=== PATIENT | female | born 1985 | race African-American/Black ===

== ENCOUNTER → 2016-09-15 | Outpatient (CLI) | payer BC | END | disposition home or self-care (01) | LOC: LABWHC1 16:05 | PROVIDERS: ATTEND Internal Medicine Endocrinology, Diabetes & Metabolism | DX: E03.8 Other specified hypothyroidism (principal) | CPT/HCPCS: 36415; 84443 ==

== ENCOUNTER → 2016-11-18 | Outpatient (CLI) | payer BC ==
[2016-11-18 13:27] VITALS: BP 141/63; PULSE 119; TEMP 98.4; BMI 72.1
--- NOTE | 2016-11-18 13:57 | P.HPBAR ---
Bariatric H&P - History & Physicial H&P Date: 11/18/16 History & Physicial: Visit/CC: initial consult Patient initial contact: Initial weight: Initial weight in pounds: Height: 5 ft 3 in Initial BMI: Last weight: Current weight: 184.567 kg Current weight in pounds: 406.90 Current BMI: 72.1 [place] body weight (based on NIH guidelines): 52.163 kg Excess body weight loss: The patient is a 31 year-old F who presents for Bariatric Assessment. She is interested in bariatric surgery. She went to a seminar in early October. Her sister is having a sleeve gastrectomy. She is try to variety of different diets without success. She is most interested currently in sleeve gastrectomy. The patient suffers from hypothyroidism asthma and low iron. 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 Denies dysphagia or DVT in the past. No prior endoscopy. She does have support of her power saw operator for the proposed surgery. Patient's mother was present today for her evaluation. Review of Systems The patient denies any acute changes in his vision or hearing, no dysphagia or odynophagia, no chest pain or shortness of breath, no dysuria or hematuria, no headache, no runny nose, no rectal bleeding or melena, no unexplained weight loss Past Medical History Past Medical History: Thyroid Disorder History of Any Multi-Drug Resistant Organisms: None Reported Past Surgical History: No Surgical Hx Reported Past Anesthesia/Blood Transfusion Reactions: No Reported Reaction Past Psychological History: No Psychological Hx Reported Smoking Status: Never smoker Past Alcohol Use History: None Reported Past Drug Use History: None Reported Surgical - Exam Vital Signs Temp Pulse BP 98.4 F 119 H 141/63 11/18/16 13:17 11/18/16 13:17 11/18/16 13:17 Physical exam: General: Well-developed, well-nourished HEENT: Normocephalic, sclerae nonicteric Abdomen: Nontender, nondistended Extremities: No edema Neuro: Alert and oriented Bariatric Assessment & Plan (1) Morbid obesity Narrative/Plan: The patient I discussed the surgical options in great detail. She remains most interested in sleeve gastrectomy. I encouraged her to potentially attend a additional seminar for informational purposes. We will tentatively move forward with the plans for sleeve gastrectomy. Upper endoscopy will be performed preoperatively. Appointment with psychiatry also being arranged. Await medical support letter is. Patient will see me in the office following her upper endoscopy. Status: Acute Bariatric Checklist Checklist: Plan: Checklist: EGD: 1. Hiatal hernia: 2. H. Pylori: HgbA1c: Vitamin D: Smoking: Never smoker Primary care physician referral: dr nino Psychiatry clearance: Cardiology clearance: Sleep study: Diet journal: VTE risk score: VTE risk level: Rehab needs at discharge:
== END | disposition home or self-care (01) ==
LOC: BARWHC3 12:52
PROVIDERS: ATTEND Surgery
DX: E66.01 Morbid (severe) obesity due to excess calories (principal)
CPT/HCPCS: 99201

== ENCOUNTER 2016-12-11 12:09 | Day surgery (SDC) | payer BC ==
[2016-12-05 14:47] VITALS: BMI 72.4
[~2016-12-11 12:09] MED LIST: LACTATED RINGERS 1,000 ML IV SCH
[2016-12-11 12:42] VITALS: TEMP 100.6
[2016-12-11] MEDS ORDERED: LIDOCAINE 1% 20 ML VIAL (10MG/ML) FOR IV START INTRADERMA ONE (12:52)
[2016-12-11] MEDS ORDERED: LIDOCAINE 1% INJ 10MG/ML (20 ML MDV) ONE (13:19)
[2016-12-11] MEDS ORDERED: fentaNYL (PF) 50 MCG/ML 2 ML AMP ONE (13:19)
[2016-12-11] MEDS ORDERED: PROPOFOL 10 MG/ML 20 ML VIAL IV ONE (13:19)
--- NOTE | 2016-12-11 13:22 | P.GSHP ---
History of Present Illness H&P Date: 12/11/16 Chief Complaint: GERD Patient today for upper endoscopy. His complaints of mild reflux. She is being followed in the outpatient setting for elective bariatric surgery. Denies dysphagia. Past Medical History Past Medical History: Asthma, Thyroid Disorder Additional Past Medical History / Comment(s): anemia History of Any Multi-Drug Resistant Organisms: None Reported Past Surgical History: No Surgical Hx Reported Additional Past Surgical History / Comment(s): wisdom teeth Past Anesthesia/Blood Transfusion Reactions: No Reported Reaction Smoking Status: Never smoker - Past Family History Mother Family Medical History: No Reported History Medications and Allergies Home Medications Medication Instructions Recorded Confirmed Type Levothyroxine Sodium [Synthroid] 50 mcg PO DAILY 11/18/16 12/11/16 History Albuterol Inhaler [Ventolin Hfa 2 puff INHALATION Q6HR PRN 12/05/16 12/11/16 History Inhaler] Iron 18 mg PO DAILY 12/05/16 12/11/16 History Allergies Allergy/AdvReac Type Severity Reaction Status Date / Time Sulfa (Sulfonamide Allergy Rash/Hives Verified 12/05/16 14:33 Antibiotics) Surgical - Exam Vital Signs Temp Pulse Resp BP Pulse Ox 100.6 F H 103 H 16 140/92 99 12/11/16 12:39 12/11/16 12:39 12/11/16 12:39 12/11/16 12:39 12/11/16 12:39 Physical exam: General: Well-developed, well-nourished HEENT: Normocephalic, sclerae nonicteric Abdomen: Nontender, nondistended Extremities: No edema Neuro: Alert and oriented Assessment and Plan (1) GERD (gastroesophageal reflux disease) Narrative/Plan: Will proceed with upper endoscopy at this time. Status: Acute (2) Morbid obesity Status: Acute
--- NOTE | 2016-12-11 13:33 | P.PCN ---
Date of Procedure: 12/11/16 Preoperative Diagnosis: Postoperative Diagnosis: Procedure(s) Performed: Preoperative Dx: GERD, obesity Postoperative Dx: Gastritis, distal esophagitis Procedure: EGD with Bx Anesthesia: Sedation Endoscopist: Dr. Jackson Specimens: Antrum, distal esophagus Endoscopic Procedure: The patient was on the endoscopy table in the left decubitus position. The Olympus gastroscope was inserted into the oropharynx and passed under direct visualization to the region of the third portion of the duodenum. From that point the scope was slowly withdrawn inspecting all surfaces carefully. There were no neoplastic inflammatory or polypoid lesions throughout the duodenum. The pylorus was widely patent. The stomach was carefully inspected. There was gastritis present. A biopsy of the antrum took place to rule out H. pylori. Retroflexion revealed a normal hiatus. The esophagus was then carefully examined. A less than 1 cm hiatal hernia was identified. There was distal esophagitis present. This was non- circumferential. This measured less than 1 cm in length. There may have been a very early Schatzki's ring formation. Biopsies of the distal esophagitis took place. The remainder the esophagus appear normal. The patient was then taken to the recovery room in stable condition per anesthesia guidelines. Recommendations: Await biopsy results. Begin antiacid therapy. Implants: Indications for Procedure: Operative Findings: Description of Procedure:
[2016-12-11 13:38] VITALS: RESP 18
[2016-12-11 14:12] VITALS: BP 143/69; PULSE 85
== END 2016-12-11 14:33 | disposition home or self-care (01) ==
LOC: ORWHC2ENDO 12:09
PROVIDERS: ATTEND Surgery
DX: K29.50 Unspecified chronic gastritis without bleeding (principal); K20.9 Esophagitis, unspecified; J45.909 Unspecified asthma, uncomplicated; E07.9 Disorder of thyroid, unspecified; E66.01 Morbid (severe) obesity due to excess calories; Z68.45 Body mass index [BMI] 70 or greater, adult; Z79.899 Other long term (current) drug therapy
CPT/HCPCS: 81025; 88305; 88342; 43239; J2001; J3010; J2704

== ENCOUNTER → 2016-12-15 | Outpatient (CLI) | payer BC ==
[2016-12-15 12:55] VITALS: BMI 71.9
== END | disposition home or self-care (01) ==
LOC: BARWHC3 08:44
PROVIDERS: ATTEND Surgery
DX: E66.01 Morbid (severe) obesity due to excess calories (principal)
CPT/HCPCS: 97804

== ENCOUNTER → 2017-01-27 | Outpatient (CLI) | payer BC ==
[2017-01-27 14:48] VITALS: BP 138/80; PULSE 98; TEMP 98.2; BMI 70.9
--- NOTE | 2017-01-27 15:54 | P.BASOAP ---
Subjective Principal diagnosis: Morbid obesity Patient seen on follow-up after recent upper endoscopy. She was found to have gastritis and esophagitis present. He was started on antiacid therapy. She feels well at this time. She is interested in proceeding with upcoming sleeve gastrectomy. Objective - Vital Signs Vital signs: Vital Signs Temp 98.2 F 01/27/17 14:45 Pulse 98 01/27/17 14:45 Resp BP 138/80 01/27/17 14:45 Pulse Ox Intake & Output 01/26/17 01/27/17 01/27/17 18:59 06:59 18:59 Weight 181.664 kg - Exam Abdomen: Soft, nontender, nondistended Assessment/Plan (1) Morbid obesity Narrative/Plan: Patient has considered the options of gastric bypass and sleeve gastrectomy further and he has decided to proceed with sleeve gastrectomy. She will continue her and antacids at this time. The preoperative risk forms were reviewed in detail. All questions were appropriately answered. Surgery is scheduled in mid February. Plan: Date: 01/27/17 Initial Weight: Initial BMI: Current Weight: 181.664 kg Current BMI: 70.9 Type of Surgery: Vertical Sleeve Gastrectomy Total Volume in Band: Previous Volume: Volume Removed: Volume Added: Band Size:
== END | disposition home or self-care (01) ==
LOC: BARWHC3 14:06
PROVIDERS: ATTEND Surgery
DX: E66.01 Morbid (severe) obesity due to excess calories (principal); Z68.45 Body mass index [BMI] 70 or greater, adult
CPT/HCPCS: 99211

== ENCOUNTER → 2017-02-23 | Outpatient (CLI) | payer BC ==
[2017-02-23 16:34] LABS: EKG EKG PERFORMED
[2017-02-23 16:46] LABS: Basophils # (A) 0.1 k/uL (0-0.2); Basophils % (A) 1 %; CH 27.4; CHCM 30.6; Eosinophils # (A) 0.1 k/uL (0-0.7); Eosinophils % (A) 1 %; HCT 37.3 % (34.0-46.0); HDW 2.18; HGB 11.7 gm/dL (11.4-16.0); Hypochromasia Slight; Luc # (Auto) 0.17; Luc % (Auto) 2; Lymphocytes # (A) 3.4 k/uL (1.0-4.8); Lymphocytes % (A) 35 %; MCH 28.2 pg (25.0-35.0); MCHC 31.4 g/dL (31.0-37.0); MCV 89.9 fL (80.0-100.0); Mean Platelet Volume 8.7; Monocytes # (A) 0.3 k/uL (0-1.0); Monocytes % (A) 3 %; Neutrophils # (A) 5.7 k/uL (1.3-7.7); Neutrophils % (A) 59 %; RBC 4.15 m/uL (3.80-5.40); RDW 13.9 % (11.5-15.5); WBC 9.7 k/uL (3.8-10.6); WBC (Perox) 10.07
[2017-02-23 16:56] LABS: ALT 27 U/L (9-52); AST 30 U/L (14-36); Alkaline Phosphatase 66 U/L (38-126); Anion Gap 10 mmol/L; Blood Urea Nitrogen 19 mg/dL (7-17); Calcium 9.3 mg/dL (8.4-10.2); Carbon Dioxide 23 mmol/L (22-30); Chloride 106 mmol/L (98-107); Glucose 97 mg/dL (74-99); Non-African American GFR(MDRD) >60 (>60 ml/min/1.73 sqM); Potassium 3.9 mmol/L (3.5-5.1); Sodium 139 mmol/L (137-145); Total Bilirubin 0.5 mg/dL (0.2-1.3); Total Protein 7.6 g/dL (6.3-8.2)
== END | disposition home or self-care (01) ==
LOC: LABPAT 16:22
PROVIDERS: ATTEND Surgery
DX: Z01.810 Encounter for preprocedural cardiovascular examination (principal); Z01.812 Encounter for preprocedural laboratory examination
CPT/HCPCS: 36415; 80053; 85025; 93005

== ENCOUNTER → 2017-03-10 | Outpatient (CLI) | payer BC ==
[2017-03-10 14:27] VITALS: BMI 67.7
[2017-03-10 14:54] VITALS: BP 127/64; PULSE 93; TEMP 98
== END | disposition home or self-care (01) ==
LOC: BARWHC3 14:05
PROVIDERS: ATTEND Surgery
DX: Z71.3 Dietary counseling and surveillance (principal); E66.01 Morbid (severe) obesity due to excess calories; Z68.44 Body mass index [BMI] 60.0-69.9, adult
CPT/HCPCS: 97803; 99211

== ENCOUNTER → 2017-05-05 | Outpatient (CLI) | payer BC ==
[2017-05-05 16:13] VITALS: BP 135/68; PULSE 89; TEMP 98.2; BMI 63.6
--- NOTE | 2017-05-05 16:47 | P.BASOAP ---
Subjective Progress Note Date: 05/05/17 Principal diagnosis: Morbid obesity Patient doing well today. Still with heartburn although improved. Taking Prilosec once daily. She has had intermittent episodes of frothy saliva-like emesis. This occurs every few days and is usually 30 minutes after mealtime. 12 pounds weight loss since last visit. She started her on iron and vitamin D supplementation but not her fine. Overall exercise level decreased recently. Objective - Vital Signs Vital signs: Vital Signs Temp 98.2 F 05/05/17 16:01 Pulse 89 05/05/17 16:01 Resp BP 135/68 05/05/17 16:01 Pulse Ox Intake & Output 05/04/17 05/05/17 05/05/17 18:59 06:59 18:59 Weight 162.976 kg - Exam Abdomen: Soft, nontender, nondistended Assessment/Plan (1) Morbid obesity Narrative/Plan: Increase exercise routine. Prescription for the Y was provided begin thiamine supplementation and continue vitamin D and iron supplementation. Follow-up evaluation in 6-8 weeks. Plan: Date: 05/05/17 Initial Weight: 184.567 kg Initial BMI: 72.1 Current Weight: 162.976 kg Current BMI: 63.6 Type of Surgery: Total Volume in Band: Previous Volume: Volume Removed: Volume Added: Band Size:
== END | disposition home or self-care (01) ==
LOC: BARWHC3 15:32
PROVIDERS: ATTEND Surgery
DX: E66.01 Morbid (severe) obesity due to excess calories (principal); Z68.44 Body mass index [BMI] 60.0-69.9, adult; Z79.899 Other long term (current) drug therapy
CPT/HCPCS: 99211

== ENCOUNTER → 2017-06-16 | Outpatient (CLI) | payer BC ==
[2017-06-16 16:07] VITALS: BMI 60.2
--- NOTE | 2017-06-16 17:19 | P.BASOAP ---
Subjective Progress Note Date: 06/16/17 Principal diagnosis: Morbid obesity Patient returns for evaluation. 19 pound weight loss since last visit. She does have about 1 episode of regurgitation we. Denies nausea. Heartburn only when she fails to take her antiacids. No abdominal pain. Objective - Vital Signs Vital signs: Intake & Output 06/15/17 06/16/17 06/16/17 18:59 06:59 18:59 Weight 154.221 kg - Exam Abdomen: Soft, nontender, nondistended Assessment/Plan (1) Morbid obesity Narrative/Plan: Will check three-month labs. Continue antiacids. Continue dietary and exercise regimen. Plan: Date: Initial Weight: 184.567 kg Initial BMI: Current Weight: 154.221 kg Current BMI: 60.2 Type of Surgery: Total Volume in Band: Previous Volume: Volume Removed: Volume Added: Band Size:
[2017-06-18 12:27] VITALS: BP 115/85; PULSE 80; TEMP 98.2
== END | disposition home or self-care (01) ==
LOC: BARWHC3 15:34
PROVIDERS: ATTEND Surgery
DX: E66.01 Morbid (severe) obesity due to excess calories (principal); Z68.44 Body mass index [BMI] 60.0-69.9, adult
CPT/HCPCS: 97803; 99211

== ENCOUNTER → 2017-08-04 | Outpatient (CLI) | payer BC ==
--- NOTE | 2017-08-04 16:40 | P.BASOAP ---
Subjective Progress Note Date: 08/04/17 Principal diagnosis: Morbid obesity Patient returns today for evaluation. Since last visit she has lost 9 pounds. She will start increasing her protein intake. Still takes her Prograf time pump inhibitor once daily. She did recently start her vitamin D supplementation. Objective - Vital Signs Vital signs: Intake & Output 08/03/17 08/04/17 08/04/17 18:59 06:59 18:59 Weight 150.139 kg - Exam Abdomen: Soft, nontender, nondistended Assessment/Plan (1) Morbid obesity Narrative/Plan: Continue vitamin D supplementation. Continue exercising and dietary regimen. We'll check 6 month labs next visit. Plan: Date: Initial Weight: 184.567 kg Initial BMI: Current Weight: 150.139 kg Current BMI: Type of Surgery: Total Volume in Band: Previous Volume: Volume Removed: Volume Added: Band Size:
== END | disposition home or self-care (01) ==
LOC: BARWHC3 15:29
PROVIDERS: ATTEND Surgery
DX: E66.01 Morbid (severe) obesity due to excess calories (principal)
CPT/HCPCS: 99211

== ENCOUNTER → 2017-08-04 | Outpatient (CLI) | payer BC | END | disposition home or self-care (01) | LOC: LABWHC1 16:41 | PROVIDERS: ATTEND Internal Medicine Endocrinology, Diabetes & Metabolism | DX: E03.8 Other specified hypothyroidism (principal) | CPT/HCPCS: 36415; 84443 ==

== ENCOUNTER → 2017-09-15 | Outpatient (CLI) | payer BC ==
[2017-09-15 15:50] VITALS: BP 135/69; PULSE 88; RESP 16; TEMP 98.2; BMI 57.2
--- NOTE | 2017-09-15 16:23 | P.BASOAP ---
Subjective Progress Note Date: 09/15/17 Principal diagnosis: Morbid obesity Patient doing well today. She has lost 8 pounds since last visit. She is due for 6 month labs. Some nasal drainage when eating at times. Still has 1-2 episodes per week of regurgitation to saliva. No heartburn. Still on antiacids. Objective - Vital Signs Vital signs: Vital Signs Temp 98.2 F 09/15/17 15:47 Pulse 88 09/15/17 15:47 Resp 16 09/15/17 15:47 BP 135/69 09/15/17 15:47 Pulse Ox Intake & Output 09/14/17 09/15/17 09/15/17 18:59 06:59 18:59 Weight 146.51 kg - Exam Abdomen: Soft, nontender, nondistended Assessment/Plan (1) Morbid obesity Narrative/Plan: Increase exercise level. Will check 6 month labs today. Continue antiacids. Follow-up 4-6 weeks. Plan: Date: 09/15/17 Initial Weight: 184.567 kg Initial BMI: 72.1 Current Weight: 146.51 kg Current BMI: 57.2 Type of Surgery: Total Volume in Band: Previous Volume: Volume Removed: Volume Added: Band Size:
[2017-09-15 17:04] LABS: HCT 35.5 % (34.0-46.0); HGB 11.1 gm/dL (11.4-16.0); Hypochromasia Slight; MCH 27.9 pg (25.0-35.0); MCHC 31.3 g/dL (31.0-37.0); MCV 89.1 fL (80.0-100.0); Mean Platelet Volume 9.1; Platelet Count 242 k/uL (150-450); RBC 3.99 m/uL (3.80-5.40); WBC 8.9 k/uL (3.8-10.6)
[2017-09-15 17:19] LABS: ALT 25 U/L (9-52); AST 29 U/L (14-36); Albumin 3.6 g/dL (3.5-5.0); Alkaline Phosphatase 58 U/L (38-126); Anion Gap 11 mmol/L; Blood Urea Nitrogen 19 mg/dL (7-17); Calcium 9.4 mg/dL (8.4-10.2); Carbon Dioxide 28 mmol/L (22-30); Chloride 105 mmol/L (98-107); Glucose 89 mg/dL (74-99); Potassium 4.4 mmol/L (3.5-5.1); Sodium 144 mmol/L (137-145); Total Bilirubin 0.4 mg/dL (0.2-1.3); Total Protein 6.9 g/dL (6.3-8.2)
[2017-09-16 01:06] LABS: Vitamin D 25 Hydroxy 22.9 ng/mL (30.0-100.0)
== END ==
LOC: BARWHC3 15:33
PROVIDERS: ATTEND Surgery
DX: E66.01 Morbid (severe) obesity due to excess calories (principal); E55.9 Vitamin D deficiency, unspecified; K90.89 Other intestinal malabsorption; Z79.899 Other long term (current) drug therapy; Z68.43 Body mass index [BMI] 50.0-59.9, adult
CPT/HCPCS: 36415; 80053; 82306; 82607; 83540; 84425; 85027; 97803; 99211

== ENCOUNTER → 2017-10-20 | Outpatient (CLI) | payer BC | END | disposition home or self-care (01) | LOC: LABWHC1 17:04 | PROVIDERS: ATTEND Internal Medicine Endocrinology, Diabetes & Metabolism | DX: E03.8 Other specified hypothyroidism (principal) | CPT/HCPCS: 36415; 84443 ==

== ENCOUNTER → 2017-11-17 | Outpatient (CLI) | payer BC ==
[2017-11-17 15:33] VITALS: BP 130/71; PULSE 95; RESP 20; TEMP 99.3; BMI 54.7
--- NOTE | 2017-11-17 15:45 | P.BASOAP ---
Subjective Progress Note Date: 11/17/17 Principal diagnosis: Morbid obesity Patient doing well today. Denies pain. Heartburn well-controlled with antiacids. We reviewed her 6 month labs from last visit. Her iron was low at 16 and her hemoglobin was 11.1. She does describe heavy menses recently. Vitamin D was also low. She says she was not taking her iron until recently. Good weight loss since last visit. Objective - Vital Signs Vital signs: Vital Signs Temp 99.3 F 11/17/17 15:25 Pulse 95 11/17/17 15:25 Resp 20 11/17/17 15:25 BP 130/71 11/17/17 15:25 Pulse Ox Intake & Output 11/16/17 11/17/17 11/17/17 18:59 06:59 18:59 Weight 140.115 kg - Exam Abdomen: Soft, nondistended, nontender Assessment/Plan (1) Morbid obesity Narrative/Plan: Patient doing well postoperative. We'll start taking her iron at this time. Also continue vitamin D supplementation. Patient agrees to make an appointment to see her primary care physician to further discuss her iron deficiency anemia issues. Plan: Date: 11/17/17 Initial Weight: 184.567 kg Initial BMI: 72.1 Current Weight: 140.115 kg Current BMI: 54.7 Type of Surgery: Total Volume in Band: Previous Volume: Volume Removed: Volume Added: Band Size:
== END ==
LOC: BARWHC3 15:18
PROVIDERS: ATTEND Surgery
DX: E66.01 Morbid (severe) obesity due to excess calories (principal); Z79.899 Other long term (current) drug therapy; Z68.43 Body mass index [BMI] 50.0-59.9, adult
CPT/HCPCS: 99211

== ENCOUNTER → 2018-01-19 | Outpatient (CLI) | payer BC ==
[2018-01-19 14:52] VITALS: BP 123/57; PULSE 74; RESP 16; TEMP 97.9; BMI 55.0
--- NOTE | 2018-01-19 17:10 | P.BASOAP ---
Subjective Progress Note Date: 01/19/18 Principal diagnosis: Morbid obesity Patient returns for evaluation. She is 11 months post sleeve gastrectomy. She did gain 2 pounds since her last visit. She admits that she has not been exercising at all recently. Rare episodes of regurgitation. Still on antiacids. Denies pain. Objective - Vital Signs Vital signs: Vital Signs Temp 97.9 F 01/19/18 14:48 Pulse 74 01/19/18 14:48 Resp 16 01/19/18 14:48 BP 123/57 01/19/18 14:48 Pulse Ox Intake & Output 01/18/18 01/19/18 01/19/18 18:59 06:59 18:59 Weight 140.84 kg - Exam Abdomen: Soft, nontender, nondistended Assessment/Plan (1) Morbid obesity Narrative/Plan: Continue dietary and exercise regimen. Increase exercise frequency. Recheck 1 year labs next visit. Plan: Date: 01/19/18 Initial Weight: 184.567 kg Initial BMI: 72.1 Current Weight: 140.84 kg Current BMI: 55.0 Type of Surgery: Total Volume in Band: Previous Volume: Volume Removed: Volume Added: Band Size:
== END | disposition home or self-care (01) ==
LOC: BARWHC3 13:07
PROVIDERS: ATTEND Surgery
DX: E66.01 Morbid (severe) obesity due to excess calories (principal); Z68.43 Body mass index [BMI] 50.0-59.9, adult; Z98.84 Bariatric surgery status
CPT/HCPCS: 99211

== ENCOUNTER → 2018-03-02 | Outpatient (CLI) | payer BC ==
[2018-03-02 15:24] VITALS: BP 138/78; PULSE 104; RESP 16; TEMP 98.7; BMI 53.1
[2018-03-02 16:21] LABS: HCT 36.9 % (34.0-46.0); HGB 11.5 gm/dL (11.4-16.0); Hypochromasia Slight; MCH 28.1 pg (25.0-35.0); MCHC 31.2 g/dL (31.0-37.0); MCV 90.2 fL (80.0-100.0); Mean Platelet Volume 9.2; Platelet Count 235 k/uL (150-450); RBC 4.08 m/uL (3.80-5.40); RDW 13.7 % (11.5-15.5); WBC 7.1 k/uL (3.8-10.6)
[2018-03-02 16:34] LABS: Anion Gap 9 mmol/L; Blood Urea Nitrogen 22 mg/dL (7-17); Calcium 9.5 mg/dL (8.4-10.2); Carbon Dioxide 25 mmol/L (22-30); Chloride 107 mmol/L (98-107); Glucose 90 mg/dL (74-99); Potassium 4.4 mmol/L (3.5-5.1); Sodium 141 mmol/L (137-145)
[2018-03-02 16:35] LABS: ALT 28 U/L (9-52); AST 54 U/L (14-36); Albumin 3.9 g/dL (3.5-5.0); Alkaline Phosphatase 52 U/L (38-126); Total Bilirubin 0.5 mg/dL (0.2-1.3); Total Protein 7.5 g/dL (6.3-8.2)
--- NOTE | 2018-03-02 16:42 | P.BASOAP ---
Subjective Progress Note Date: 03/02/18 Principal diagnosis: Morbid obesity Patient returns for evaluation today. Doing well at this time. She has lost 11 pounds over the last 5 weeks. 2 episodes of regurgitation since last visit. She is due for one year labs. Objective - Vital Signs Vital signs: Vital Signs Temp 98.7 F 03/02/18 15:14 Pulse 104 H 03/02/18 15:14 Resp 16 03/02/18 15:14 BP 138/78 03/02/18 15:14 Pulse Ox Intake & Output 03/01/18 03/02/18 03/02/18 18:59 06:59 18:59 Weight 136.078 kg - Exam Abdomen: Soft, nontender, nondistended - Labs CBC & Chem 7: 03/02/18 15:59 03/02/18 15:59 Labs: Abnormal Lab Results - Last 24 Hours (Table) 03/02/18 Range/Units 15:59 BUN 22 H (7-17) mg/dL AST 54 H (14-36) U/L Assessment/Plan (1) Morbid obesity Narrative/Plan: Patient doing well at this time. Better weight loss. She is increasing her exercise at this time. We will check one year labs. Follow-up 2 months. Plan: Date: 03/02/18 Initial Weight: 184.567 kg Initial BMI: 72.1 Current Weight: 136.078 kg Current BMI: 53.1 Type of Surgery: Total Volume in Band: Previous Volume: Volume Removed: Volume Added: Band Size:
[2018-03-03 02:53] LABS: Vitamin D 25 Hydroxy 23.1 ng/mL (30.0-100.0)
[2018-03-03 04:01] LABS: Folate, Serum 10.4 ng/mL
== END ==
LOC: BARWHC3 14:57
PROVIDERS: ATTEND Surgery
DX: E66.01 Morbid (severe) obesity due to excess calories (principal); E03.9 Hypothyroidism, unspecified; E55.9 Vitamin D deficiency, unspecified; K90.89 Other intestinal malabsorption; Z68.43 Body mass index [BMI] 50.0-59.9, adult
CPT/HCPCS: 36415; 80053; 82306; 82607; 82746; 83540; 84425; 84443; 85027; 97803; 99211

== ENCOUNTER 2018-05-14 13:20 | Emergency (ER) | payer BC, OTHER ==
[2018-05-14 13:27] VITALS: BP 161/85; PULSE 88; RESP 18; TEMP 98
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
== END 2018-05-14 14:18 | disposition home or self-care (01) ==
LOC: EC 13:20
DX: R51 Headache (principal); E07.9 Disorder of thyroid, unspecified; D64.9 Anemia, unspecified; Z88.2 Allergy status to sulfonamides; Z79.899 Other long term (current) drug therapy; Y04.0XXA Assault by unarmed brawl or fight, initial encounter; Y92.219 Unspecified school as the place of occurrence of the external cause; Y99.0 Civilian activity done for income or pay
CPT/HCPCS: 99283

== ENCOUNTER → 2018-05-18 | Outpatient (CLI) | payer BC ==
[2018-05-18 15:22] VITALS: BP 118/80; PULSE 105; TEMP 97.7; BMI 52.0
--- NOTE | 2018-05-18 15:34 | P.BASOAP ---
Subjective Progress Note Date: 05/18/18 Principal diagnosis: Morbid obesity Patient returns for one year recheck. Doing well at this time. Continues to lose weight. She is down 6 pounds since last visit. Still with heartburn if she does not take her antiacids. She was low on her recent labs for vitamin B1 , vitamin D, iron. She started taking additional supplements of all 3 of those vitamins. She admits that she was not taking her multivitamin well prior to that lab work and is doing much better now. Objective - Vital Signs Vital signs: Vital Signs Temp 97.7 F 05/18/18 15:06 Pulse 105 H 05/18/18 15:06 Resp BP 118/80 05/18/18 15:06 Pulse Ox Intake & Output 05/17/18 05/18/18 05/18/18 18:59 06:59 18:59 Weight 133.356 kg - Exam Abdomen: Soft, nontender, nondistended Assessment/Plan (1) Morbid obesity Narrative/Plan: Continue vitamin supplementation. Continue antiacids. Continue dietary and exercise regimen. Follow-up 2 months. We'll check repeat vitamin B, vitamin D , iron studies at that time. Plan: Date: 05/18/18 Initial Weight: 184.567 kg Initial BMI: 72.1 Current Weight: 133.356 kg Current BMI: 52.0 Type of Surgery: Total Volume in Band: Previous Volume: Volume Removed: Volume Added: Band Size:
== END ==
LOC: BARWHC3 15:03
PROVIDERS: ATTEND Surgery
DX: E66.01 Morbid (severe) obesity due to excess calories (principal); Z68.43 Body mass index [BMI] 50.0-59.9, adult
CPT/HCPCS: 99211

== ENCOUNTER → 2018-08-03 | Outpatient (CLI) | payer BC ==
[2018-08-03 15:42] VITALS: BP 121/63; PULSE 98; RESP 16; TEMP 98.3; BMI 53.1
--- NOTE | 2018-08-03 17:17 | P.BASOAP ---
Subjective Progress Note Date: 08/03/18 Principal diagnosis: Morbid obesity Patient doing well today. Slight weight gain since last visit. Admits that she is not exercising currently. She has been better about taking her vitamins. Objective - Vital Signs Vital signs: Vital Signs Temp 98.3 F 08/03/18 15:39 Pulse 98 08/03/18 15:39 Resp 16 08/03/18 15:39 BP 121/63 08/03/18 15:39 Pulse Ox Intake & Output 08/02/18 08/03/18 08/03/18 18:59 06:59 18:59 Weight 136.078 kg - Exam Abdomen: Soft, nontender, nondistended Assessment/Plan (1) Morbid obesity Narrative/Plan: Patient doing fairly well. We'll increase her exercise once again. Check vitamin B1 the an iron at this time. Follow-up in 3 months. Plan: Date: 08/03/18 Initial Weight: 184.567 kg Initial BMI: 72.1 Current Weight: 136.078 kg Current BMI: 53.1 Type of Surgery: Total Volume in Band: Previous Volume: Volume Removed: Volume Added: Band Size:
== END | disposition home or self-care (01) ==
LOC: BARWHC3 15:14
PROVIDERS: ATTEND Surgery
DX: E66.01 Morbid (severe) obesity due to excess calories (principal); Z68.43 Body mass index [BMI] 50.0-59.9, adult
CPT/HCPCS: 99211

== ENCOUNTER 2018-08-11 14:01 | Observation (INO) | payer BC ==
[2018-08-11] MEDS ORDERED: SODIUM CHLORIDE 0.9% 1,000 ML IV ONE (15:21)
[2018-08-11 15:22] LABS: Basophils % (A) 0 %; Eosinophils % (A) 0 %; HCT 39.1 % (34.0-46.0); HGB 12.2 gm/dL (11.4-16.0); Hypochromasia Slight; Lymphocytes # (A) 1.6 k/uL (1.0-4.8); Lymphocytes % (A) 12 %; MCH 28.3 pg (25.0-35.0); MCHC 31.3 g/dL (31.0-37.0); MCV 90.4 fL (80.0-100.0); Mean Platelet Volume 9.3; Monocytes # (A) 0.2 k/uL (0-1.0); Monocytes % (A) 2 %; Neutrophils # (A) 10.8 k/uL (1.3-7.7); Neutrophils % (A) 84 %; Platelet Count 219 k/uL (150-450); RBC 4.33 m/uL (3.80-5.40); RDW 13.6 % (11.5-15.5); WBC 12.8 k/uL (3.8-10.6)
[2018-08-11] MEDS ORDERED: KETOROLAC 30 MG/ML 1 ML VIAL IVP STA (15:22)
[2018-08-11] MEDS ORDERED: ONDANSETRON 4 MG/2 ML VIAL IVP STA (15:22)
[2018-08-11 15:23] LABS: Appearance,Urine Clear (Clear); Bilirubin,Urine Negative (Negative); Blood,Urine Negative (Negative); Color,Urine Yellow; Glucose,Urine (UA) Negative (Negative); Ketones,Urine 3+ (Negative); Leukocyte Esterase,Urine Negative (Negative); Nitrite,Urine Negative (Negative); PH, Urine 5.5 (5.0-8.0); Protein,Urine Negative (Negative); Specific Gravity,Urine 1.023 (1.001-1.035); Urobilinogen,Urine <2.0 mg/dL (<2.0)
[2018-08-11 15:33] LABS: ALT 63 U/L (9-52); AST 156 U/L (14-36); Alkaline Phosphatase 85 U/L (38-126); Amylase 62 U/L (30-110); Anion Gap 8 mmol/L; Blood Urea Nitrogen 21 mg/dL (7-17); Calcium 9.4 mg/dL (8.4-10.2); Carbon Dioxide 27 mmol/L (22-30); Chloride 104 mmol/L (98-107); Glucose 157 mg/dL (74-99); Lipase 80 U/L (23-300); Potassium 4.1 mmol/L (3.5-5.1); Sodium 139 mmol/L (137-145); Total Bilirubin 0.6 mg/dL (0.2-1.3); Total Protein 7.6 g/dL (6.3-8.2)
--- NOTE | 2018-08-11 15:38 | ED ---
Abdominal Pain HPI - General Chief Complaint: Abdominal Pain Stated Complaint: Abd pain Time Seen by Provider: 08/11/18 14:36 Source: patient, RN notes reviewed, old records reviewed Mode of arrival: ambulatory Limitations: no limitations - History of Present Illness Initial Comments: Patient is a 33-year-old female presents to return today with complaints of right upper quadrant abdominal. Towards her back 30 minutes after eating lunch today. Patient states that she had multiple doses of nausea and vomiting afterwards. Patient states that she's had no shortness of breath. She denies any fevers or chills. She's never had symptoms like this before. History of gastric sleeve. Her surgeon is Dr. Jackson - Related Data Home Medications Medication Instructions Recorded Confirmed Levothyroxine Sodium [Synthroid] 50 mcg PO DAILY 11/18/16 08/11/18 Cholecalciferol (Vitamin D3) 2,000 unit PO DAILY 11/17/17 08/11/18 [Vitamin D3] Multivitamin [Multivitamins Adult 1 tab PO DAILY 05/18/18 08/11/18 Gummies] Thiamine [Vitamin B-1] 100 mg PO DAILY 05/18/18 08/11/18 Ferrous Sulfate [Feosol] 325 mg PO DAILY 08/11/18 08/11/18 Previous Rx's Medication Instructions Recorded Omeprazole [PriLOSEC] 20 mg PO AC-BRKFST #90 cap 12/11/16 Allergies Allergy/AdvReac Type Severity Reaction Status Date / Time Sulfa (Sulfonamide Allergy Rash/Hives Verified 08/11/18 14:39 Antibiotics) Review of Systems ROS Statement: Those systems with pertinent positive or pertinent negative responses have been documented in the HPI. ROS Other: All systems not noted in ROS Statement are negative. Past Medical History Past Medical History: Thyroid Disorder Additional Past Medical History / Comment(s): anemia, venous insufficeincy ( bilateral legs; wears compression stockings), hair loss, eczema History of Any Multi-Drug Resistant Organisms: None Reported Past Surgical History: No Surgical Hx Reported, Bariatric Surgery Additional Past Surgical History / Comment(s): wisdom teeth pulled under anesthesia. egd-12/11/16 sleeve gastrectomy 02-28-17 Past Anesthesia/Blood Transfusion Reactions: No Reported Reaction Past Psychological History: No Psychological Hx Reported Smoking Status: Never smoker Past Alcohol Use History: None Reported Past Drug Use History: None Reported - Past Family History Mother Family Medical History: No Reported History General Exam - General Exam Comments Initial Comments: 33-year-old female. Alert and oriented. No distress. Limitations: no limitations General appearance: alert, in no apparent distress Head exam: Present: atraumatic, normocephalic, normal inspection Eye exam: Present: normal appearance, PERRL, EOMI. Absent: scleral icterus, conjunctival injection, periorbital swelling ENT exam: Present: normal exam, mucous membranes moist Neck exam: Present: normal inspection. Absent: tenderness, meningismus, lymphadenopathy Respiratory exam: Present: normal lung sounds bilaterally. Absent: respiratory distress, wheezes, rales, rhonchi, stridor Cardiovascular Exam: Present: regular rate, normal rhythm, normal heart sounds. Absent: systolic murmur, diastolic murmur, rubs, gallop, clicks GI/Abdominal exam: Present: soft, tenderness (Upper quadrant tenderness,), normal bowel sounds. Absent: distended, guarding, rebound, rigid Extremities exam: Present: normal inspection, full ROM, normal capillary refill. Absent: tenderness, pedal edema, joint swelling, calf tenderness Back exam: Present: normal inspection Neurological exam: Present: alert, oriented X3, CN II-XII intact Psychiatric exam: Present: normal affect, normal mood Skin exam: Present: warm, dry, intact, normal color. Absent: rash Course Vital Signs 08/11/18 14:27 Temperature 97.5 F L Pulse Rate 85 Respiratory 18 Rate Blood Pressure 117/67 O2 Sat by Pulse 98 Oximetry Medical Decision Making - Medical Decision Making Is a 33-year-old female process returns today with complaints of severe right upper quadrant abdominal pain. Patient reports symptoms started 30 minutes up she ate. She said history gastric sleeve by Dr. Jackson. At this time Patient has no fever and pain is somewhat diminished at this time. She does have some right upper quadrant tenderness. Lab work is obtained. Mildly elevated liver enzymes. White blood cell count was 12.8. Ultrasound of the call blood was completed. Multiple stones. Patient's case discussed with Dr. Migue Garcia discussed the case with Dr. Jackson. He recommends admission. Patient may remaining nothing by mouth after midnight. All questions were answered and Patient agrees to admission. - Lab Data Result diagrams: 08/11/18 14:56 08/11/18 14:56 Lab Results 08/11/18 08/11/18 08/11/18 Range/Units 14:56 14:56 14:56 WBC 12.8 H (3.8-10.6) k/uL RBC 4.33 (3.80-5.40) m/uL Hgb 12.2 (11.4-16.0) gm/dL Hct 39.1 (34.0-46.0) % MCV 90.4 (80.0-100.0) fL MCH 28.3 (25.0-35.0) pg MCHC 31.3 (31.0-37.0) g/dL RDW 13.6 (11.5-15.5) % Plt Count 219 (150-450) k/uL Neutrophils % 84 % Lymphocytes % 12 % Monocytes % 2 % Eosinophils % 0 % Basophils % 0 % Neutrophils # 10.8 H (1.3-7.7) k/uL Lymphocytes # 1.6 (1.0-4.8) k/uL Monocytes # 0.2 (0-1.0) k/uL Eosinophils # 0.0 (0-0.7) k/uL Basophils # 0.0 (0-0.2) k/uL Hypochromasia Slight Sodium 139 (137-145) mmol/L Potassium 4.1 (3.5-5.1) mmol/L Chloride 104 (98-107) mmol/L Carbon Dioxide 27 (22-30) mmol/L Anion Gap 8 mmol/L BUN 21 H (7-17) mg/dL Creatinine 0.73 (0.52-1.04) mg/dL Est GFR (CKD-EPI)AfAm >90 (>60 ml/min/1.73 sqM) Est GFR (CKD-EPI)NonAf >90 (>60 ml/min/1.73 sqM) Glucose 157 H (74-99) mg/dL Calcium 9.4 (8.4-10.2) mg/dL Total Bilirubin 0.6 (0.2-1.3) mg/dL AST 156 H (14-36) U/L ALT 63 H (9-52) U/L Alkaline Phosphatase 85 (38-126) U/L Total Protein 7.6 (6.3-8.2) g/dL Albumin 4.0 (3.5-5.0) g/dL Amylase 62 (30-110) U/L Lipase 80 (23-300) U/L Urine Color Urine Appearance (Clear) Urine pH (5.0-8.0) Ur Specific Custer (1.001-1.035) Urine Protein (Negative) Urine Glucose (UA) (Negative) Urine Ketones (Negative) Urine Blood (Negative) Urine Nitrite (Negative) Urine Bilirubin (Negative) Urine Urobilinogen (<2.0) mg/dL Ur Leukocyte Esterase (Negative) Urine HCG, Qual Not Detected (Not Detectd) 08/11/18 Range/Units 14:56 WBC (3.8-10.6) k/uL RBC (3.80-5.40) m/uL Hgb (11.4-16.0) gm/dL Hct (34.0-46.0) % MCV (80.0-100.0) fL MCH (25.0-35.0) pg MCHC (31.0-37.0) g/dL RDW (11.5-15.5) % Plt Count (150-450) k/uL Neutrophils % % Lymphocytes % % Monocytes % % Eosinophils % % Basophils % % Neutrophils # (1.3-7.7) k/uL Lymphocytes # (1.0-4.8) k/uL Monocytes # (0-1.0) k/uL Eosinophils # (0-0.7) k/uL Basophils # (0-0.2) k/uL Hypochromasia Sodium (137-145) mmol/L Potassium (3.5-5.1) mmol/L Chloride (98-107) mmol/L Carbon Dioxide (22-30) mmol/L Anion Gap mmol/L BUN (7-17) mg/dL Creatinine (0.52-1.04) mg/dL Est GFR (CKD-EPI)AfAm (>60 ml/min/1.73 sqM) Est GFR (CKD-EPI)NonAf (>60 ml/min/1.73 sqM) Glucose (74-99) mg/dL Calcium (8.4-10.2) mg/dL Total Bilirubin (0.2-1.3) mg/dL AST (14-36) U/L ALT (9-52) U/L Alkaline Phosphatase (38-126) U/L Total Protein (6.3-8.2) g/dL Albumin (3.5-5.0) g/dL Amylase (30-110) U/L Lipase (23-300) U/L Urine Color Yellow Urine Appearance Clear (Clear) Urine pH 5.5 (5.0-8.0) Ur Specific Custer 1.023 (1.001-1.035) Urine Protein Negative (Negative) Urine Glucose (UA) Negative (Negative) Urine Ketones 3+ H (Negative) Urine Blood Negative (Negative) Urine Nitrite Negative (Negative) Urine Bilirubin Negative (Negative) Urine Urobilinogen <2.0 (<2.0) mg/dL Ur Leukocyte Esterase Negative (Negative) Urine HCG, Qual (Not Detectd) - Radiology Data Radiology results: report reviewed Ultrasound shows evidence of cholelithiasis. Possible multiple mobile gravel stones wall thickening noted evidence of positive Charles sign. Disposition Clinical Impression: Cholelithiasis Disposition: ADMITTED IP TO THIS [facility] Condition: Good Instructions (If sedation given, give patient instructions): Abdominal Pain (ED ) Is patient prescribed a controlled substance at d/c from ED?: No Referrals: Allyn Obrien DO [Primary Care Provider] - 1-2 days Time of Disposition: 17:47
--- NOTE | 2018-08-11 16:25 | US ---
EXAMINATION TYPE: US gallbladder DATE OF EXAM: 08/11/2018 COMPARISON: NONE CLINICAL HISTORY: Pain. Pt stats ABD pain that started 4-5 hours ago after eating EXAM MEASUREMENTS: Liver Length: 15.6 cm Gallbladder Wall: 0.4 cm CBD: 0.4 cm Right Kidney: 10.4 x 4.4 x 6.0 cm Pancreas: Body wnl, head and tail obscured by overlying bowel gas Liver: Appeared wnl Gallbladder: Possible multiple, mobile "gravel" stones, wall thickened Evidence for sonographic Charles's sign: Yes CBD: wnl Right Kidney: Appeared wnl IMPRESSION: Cholelithiasis
--- NOTE | 2018-08-11 17:02 | XR ---
EXAMINATION TYPE: XR KUB DATE OF EXAM: 08/11/2018 COMPARISON: NONE HISTORY: Right upper quadrant pain TECHNIQUE: 2 views FINDINGS: 2 views upright show no sign of intestinal obstruction or pneumoperitoneum. Fecal pattern i s normal. Lung bases are clear. There are no pathologic calcifications. There are surgical clips in t he left upper quadrant. IMPRESSION: Nonacute abdomen.
[2018-08-11] MEDS ORDERED: ONDANSETRON 4 MG/2 ML VIAL IVP PRN (17:47)
[2018-08-11] MEDS ORDERED: KETOROLAC 30 MG/ML 1 ML VIAL IVP PRN (17:47)
[2018-08-11] MEDS ORDERED: NALOXONE 0.4 MG/ML 1 ML VIAL IV PRN (17:47)
[2018-08-11 19:46] VITALS: BMI 52.9
[2018-08-11] MEDS: SODIUM CHLORIDE 0.9% 1,000 ML IV SCH (21:43)
[2018-08-11] MEDS: PIPERACILLIN-TAZOBACTAM 3.375 GM in SODIUM CHLORIDE 0.9% 100 ML IVPB SCH (21:44)
[2018-08-12] MEDS: HEPARIN SODIUM,PORCINE 5,000 UNIT/ML 1 ML VIAL SQ SCH ×4 (00:32→23:08)
[2018-08-12] MEDS ORDERED: SODIUM CHLORIDE 0.9% 1,000 ML BAG ONE (05:20)
[2018-08-12] MEDS: PIPERACILLIN-TAZOBACTAM 3.375 GM in SODIUM CHLORIDE 0.9% 100 ML IVPB SCH ×3 (06:52→20:38)
[2018-08-12 08:43] LABS: Basophils % (A) 1 %; Eosinophils # (A) 0.1 k/uL (0-0.7); Eosinophils % (A) 1 %; HCT 34.3 % (34.0-46.0); HGB 10.7 gm/dL (11.4-16.0); Hypochromasia Moderate; Lymphocytes % (A) 34 %; MCH 28.4 pg (25.0-35.0); MCHC 31.3 g/dL (31.0-37.0); MCV 90.9 fL (80.0-100.0); Mean Platelet Volume 8.4; Monocytes # (A) 0.2 k/uL (0-1.0); Monocytes % (A) 3 %; Neutrophils # (A) 3.6 k/uL (1.3-7.7); Neutrophils % (A) 60 %; Platelet Count 208 k/uL (150-450); RBC 3.77 m/uL (3.80-5.40); RDW 13.6 % (11.5-15.5)
[2018-08-12] MEDS ORDERED: LEVOTHYROXINE 50 MCG TAB PO SCH (09:00)
[2018-08-12] MEDS ORDERED: SYNTHROID 50 MCG PO SCH (09:00)
[2018-08-12] MEDS: SYNTHROID 50 MCG PO SCH (09:03)
[2018-08-12 09:41] LABS: ALT 121 U/L (9-52); AST 125 U/L (14-36); Albumin 3.4 g/dL (3.5-5.0); Alkaline Phosphatase 74 U/L (38-126); Anion Gap 5 mmol/L; Blood Urea Nitrogen 16 mg/dL (7-17); Calcium 9.1 mg/dL (8.4-10.2); Carbon Dioxide 27 mmol/L (22-30); Chloride 107 mmol/L (98-107); Glucose 91 mg/dL (74-99); Potassium 4.2 mmol/L (3.5-5.1); Sodium 139 mmol/L (137-145); Total Bilirubin 0.8 mg/dL (0.2-1.3); Total Protein 6.5 g/dL (6.3-8.2)
--- NOTE | 2018-08-12 09:53 | P.CONS ---
History of Present Illness - Reason for Consult Consult date: 08/12/18 medical management Requesting physician: Arun Jackson - Chief Complaint abdominal pain - History of Present Illness This is a 33 year old female, a patient of Dr. Obrien. She has a known past medical history of hypothyroidism, peripheral vascular disease in which she wears compression stockings, and iron deficiency anemia. Patient also had a gastric sleeve completed in February 2017. Patient presents to the hospital with complaints of right upper quadrant abdominal pain that started after eating lunch yesterday afternoon. Patient reports that she ate salad and that she is off of her pizza and then about 30 minutes later she was having sharp right upper quadrant abdominal pain. Initially she thought it was gas pain took some Gas-X with no relief. Pain continued to worsen. She had chills and sweats. Also nausea and vomiting. She came into the ER was found have a white count of 12.8 AST 156 and ALT 63. Abdominal ultrasound that showed evidence of cholelithiasis. Possible multiple gravel stones and wall thickened. She was admitted to surgical service. We have been consulted for medical management. Patient denies any history of myocardial infarction, congestive heart failure, diabetes mellitus, any renal disease, any COPD or asthma. She is able to ambulate a flight of stairs without difficulty. She was started on IV Zosyn and is scheduled for lactose A cholecystectomy this afternoon. Review of Systems Please refer to HPI otherwise unremarkable Past Medical History Past Medical History: Thyroid Disorder Additional Past Medical History / Comment(s): anemia, venous insufficeincy (bilateral legs; wears compression stockings), hair loss, eczema History of Any Multi-Drug Resistant Organisms: None Reported Past Surgical History: No Surgical Hx Reported, Bariatric Surgery Additional Past Surgical History / Comment(s): wisdom teeth pulled under anesthesia. egd-12/11/16 sleeve gastrectomy 02-28-17 Past Anesthesia/Blood Transfusion Reactions: Postoperative Nausea & Vomiting (PONV) Past Psychological History: No Psychological Hx Reported Smoking Status: Never smoker Past Alcohol Use History: None Reported Past Drug Use History: None Reported - Past Family History Mother Family Medical History: Diabetes Mellitus Medications and Allergies Home Medications Medication Instructions Recorded Confirmed Type Levothyroxine Sodium [Synthroid] 50 mcg PO DAILY 11/18/16 08/11/18 History Omeprazole [PriLOSEC] 20 mg PO -BRKFST #90 cap 12/11/16 08/11/18 Rx Cholecalciferol (Vitamin D3) 2,000 unit PO DAILY 11/17/17 08/11/18 History [Vitamin D3] Multivitamin [Multivitamins Adult 1 tab PO DAILY 05/18/18 08/11/18 History Gummies] Thiamine [Vitamin B-1] 100 mg PO DAILY 05/18/18 08/11/18 History Ferrous Sulfate [Feosol] 325 mg PO DAILY 08/11/18 08/11/18 History Allergies Allergy/AdvReac Type Severity Reaction Status Date / Time Sulfa (Sulfonamide Allergy Rash/Hives Verified 08/11/18 14:39 Antibiotics) Physical Exam Vitals: Vital Signs Temp Pulse Pulse Resp BP BP Pulse Ox 08/12/18 08:03 97.9 F 81 20 112/74 97 08/12/18 00:30 98.2 F 78 18 107/67 100 08/11/18 19:17 97.5 F L 59 L 16 134/82 97 08/11/18 18:53 59 L 16 134/82 97 08/11/18 14:27 97.5 F L 85 18 117/67 98 Intake and Output 08/11/18 08/12/18 08/12/18 22:59 06:59 14:59 Intake Total 1600 Balance 1600 Intake: Amount of Fluid Infused ( 1000 ml) Oral 600 Other: Voiding Method Toilet Toilet # Voids 2 Head normocephalic Neck supple Lungs clear to auscultation bilaterally no wheezing or crackles Heart regular rate and rhythm S1-S2, no rub or gallop Abdomen is soft right upper quadrant tenderness nondistended positive bowel sounds no hepatosplenomegaly Extremities no edema Neuro alert and orientated to 3 Results CBC & Chem 7: 08/12/18 08:10 08/12/18 08:10 Labs: Abnormal Lab Results - Last 24 Hours (Table) 08/11/18 08/11/18 08/11/18 Range/Units 14:56 14:56 14:56 WBC 12.8 H (3.8-10.6) k/uL RBC (3.80-5.40) m/uL Hgb (11.4-16.0) gm/dL Neutrophils # 10.8 H (1.3-7.7) k/uL BUN 21 H (7-17) mg/dL Glucose 157 H (74-99) mg/dL AST 156 H (14-36) U/L ALT 63 H (9-52) U/L Albumin (3.5-5.0) g/dL Urine Ketones 3+ H (Negative) 08/12/18 08/12/18 Range/Units 08:10 08:10 WBC (3.8-10.6) k/uL RBC 3.77 L (3.80-5.40) m/uL Hgb 10.7 L (11.4-16.0) gm/dL Neutrophils # (1.3-7.7) k/uL BUN (7-17) mg/dL Glucose (74-99) mg/dL AST 125 H (14-36) U/L ALT 121 H (9-52) U/L Albumin 3.4 L (3.5-5.0) g/dL Urine Ketones (Negative) Assessment and Plan Assessment: 1. Acute cholecystitis: Patient had elevated white count, elevated LFTs and right upper quadrant abdominal pain with ultrasound showing evidence of cholelithiasis. Patient is scheduled for laparoscopic cholecystectomy later this afternoon. Currently on IV Zosyn and IV fluids. Patient is medically stab le to proceed with surgery. EKG has been ordered for preop clearance. 2. Hypothyroidism continue with Synthroid 3. Morbid obesity: Status post gastric sleeve February 2017. Patient does report 100 pound weight loss 4. Iron deficiency anemia: Continue iron supplement. Continue to monitor he moglobin 5. History of peripheral vascular disease continue compression stockings GI prophylaxis Protonix and DVT prophylaxis subcu heparin Thank you for this consultation. We'll continue to follow along during patient's hospitalization Time with Patient: Greater than 30 (Greater than 50% of the total time spent in counseling and coordination of care.I performed an examination of the patient and discussed their management with the physician Highway Traffic Control Technician. I have reviewed the Physician Highway Traffic Control Technician's notes and agree with the documented findings and plan of care)
[2018-08-12] MEDS: PANTOPRAZOLE 40 MG/10 ML VIAL IV SCH (10:12)
--- NOTE | 2018-08-12 13:14 | P.GSHP ---
<Mary Carmen Gonzálse A - Last Filed: 08/12/18 12:58> History of Present Illness H&P Date: 08/12/18 Chief Complaint: abdominal pain CHIEF COMPLAINT: Abdominal pain HISTORY OF PRESENT ILLNESS: 33-year-old female with a history of sleeve gastrectomy in February 2017 who presented to the emergency room with a chief complaint of right upper quadrant abdominal pain. Patient reports she was eating cheese pizza and salad and shortly after began having severe right upper quadrant pain. She states she gets gas pains occasionally and initially attributed it to that. She states she took some anti-gas drops with no improvement of her symptoms. She also reports associated nausea and vomiting. The pain persisted so she came to the ER for further evaluation. WBC on admission 12.8. Repeat 6.0. She has been started on Zosyn. PAST MEDICAL HISTORY: See list. PAST SURGICAL HISTORY: See list. MEDICATIONS: See list. ALLERGIES: See list. SOCIAL HISTORY: No illicit drug use. REVIEW OF SYSTEMS: CONSTITUTIONAL: Denies fever or chills. HEENT: Denies blurred vision, vision changes, or eye pain. Denies hemoptysis ENDOCRINE: Denies heat or cold intolerance. CARDIOVASCULAR: Denies chest pain or pressure. RESPIRATORY: No shortness of breath. GASTROINTESTINAL: Reports right upper quadrant abdominal pain, nausea, and vomiting prior to hospitalization. Currently denies. NEURO: Denies history of seizures. PSYCH: No depression or suicidal ideation HEMATOLOGIC: Denies bleeding disorders. LYMPHATIC: The patient denies any lumps and bumps around the neck. GENITOURINARY: Denies any blood in urine or increased urinary frequency. MUSCULOSKELETAL: Denies myalgias. Denies joint swelling. Denies decreased range of motion beyond patients baseline. SKIN: Denies pruitis. Denies rash. PHYSICAL EXAM: VITAL SIGNS: Currently stable. GENERAL: Well-developed in no acute distress. HEENT: No sclera icterus. Extraocular movements grossly intact. Moist buccal mucosa. Head is atraumatic, normocephalic. Hears conversational speech. No nasal drainage. NECK: Supple without lymphadenopathy. CHEST: Non-labored respirations and equal bilateral excursions. CARDIOVASCULAR: Regular rate with regular rhythm. Palpable 2+ radial pulses. ABDOMEN: Soft. Nondistended. Tenderness upon palpation of right upper quadrant. MUSCULOSKELETAL: No clubbing, cyanosis or edema. NEUROLOGIC: No focal or lateralizing signs. Cranial nerves II through XII grossly intact. PSYCH: Appropriate affect. Alert and oriented to person, place and time. SKIN: Well perfused. Good skin turgor. IMAGING: Ultrasound gallbladder: Cholelithiasis. Possible multiple mobile "gravel" stones, wall thickened. Positive evidence for sonographic Charles sign. ASSESSMENT: 1. Right upper quadrant pain, nausea, vomiting 1 day 2. Acute cholecystitis 3. Elevated liver enzymes 4. History of sleeve gastrectomy, February 2017 PLAN: 1. Continue antibiotics 2. Nothing by mouth 3. Patient to undergo laparoscopic cholecystectomy today with Dr. Jackson Nurse practitioner note has been reviewed by physician. Signing provider agrees with the documented findings, assessment, and plan of care. Past Medical History Past Medical History: Thyroid Disorder Additional Past Medical History / Comment(s): anemia, venous insufficeincy (bilateral legs; wears compression stockings), hair loss, eczema History of Any Multi-Drug Resistant Organisms: None Reported Past Surgical History: No Surgical Hx Reported, Bariatric Surgery Additional Past Surgical History / Comment(s): wisdom teeth pulled under anesthesia. egd-12/11/16 sleeve gastrectomy 02-28-17 Past Anesthesia/Blood Transfusion Reactions: Postoperative Nausea & Vomiting (PONV) Past Psychological History: No Psychological Hx Reported Smoking Status: Never smoker Past Alcohol Use History: None Reported Past Drug Use History: None Reported - Past Family History Mother Family Medical History: Diabetes Mellitus Medications and Allergies Home Medications Medication Instructions Recorded Confirmed Type Levothyroxine Sodium [Synthroid] 50 mcg PO DAILY 11/18/16 08/11/18 History Omeprazole [PriLOSEC] 20 mg PO AC-BRKFST #90 cap 12/11/16 08/11/18 Rx Cholecalciferol (Vitamin D3) 2,000 unit PO DAILY 11/17/17 08/11/18 History [Vitamin D3] Multivitamin [Multivitamins Adult 1 tab PO DAILY 05/18/18 08/11/18 History Gummies] Thiamine [Vitamin B-1] 100 mg PO DAILY 05/18/18 08/11/18 History Ferrous Sulfate [Feosol] 325 mg PO DAILY 08/11/18 08/11/18 History Allergies Allergy/AdvReac Type Severity Reaction Status Date / Time Sulfa (Sulfonamide Allergy Rash/Hives Verified 08/12/18 15:02 Antibiotics) Surgical - Exam Vital Signs Temp Pulse Resp BP Pulse Ox 97.5 F L 85 18 117/67 98 08/11/18 14:27 08/11/18 14:27 08/11/18 14:27 08/11/18 14:27 08/11/18 14:27 Results - Labs 08/12/18 08:10 08/12/18 08:10 Abnormal Lab Results - Last 24 Hours (Table) 08/11/18 08/11/18 08/11/18 Range/Units 14:56 14:56 14:56 WBC 12.8 H (3.8-10.6) k/uL RBC (3.80-5.40) m/uL Hgb (11.4-16.0) gm/dL Neutrophils # 10.8 H (1.3-7.7) k/uL BUN 21 H (7-17) mg/dL Glucose 157 H (74-99) mg/dL AST 156 H (14-36) U/L ALT 63 H (9-52) U/L Albumin (3.5-5.0) g/dL Urine Ketones 3+ H (Negative) 08/12/18 08/12/18 Range/Units 08:10 08:10 WBC (3.8-10.6) k/uL RBC 3.77 L (3.80-5.40) m/uL Hgb 10.7 L (11.4-16.0) gm/dL Neutrophils # (1.3-7.7) k/uL BUN (7-17) mg/dL Glucose (74-99) mg/dL AST 125 H (14-36) U/L ALT 121 H (9-52) U/L Albumin 3.4 L (3.5-5.0) g/dL Urine Ketones (Negative) Diabetes panel 08/11/18 08/12/18 Range/Units 14:56 08:10 Sodium 139 139 (137-145) mmol/L Potassium 4.1 4.2 (3.5-5.1) mmol/L Chloride 104 107 (98-107) mmol/L Carbon Dioxide 27 27 (22-30) mmol/L BUN 21 H 16 (7-17) mg/dL Creatinine 0.73 0.73 (0.52-1.04) mg/dL Glucose 157 H 91 (74-99) mg/dL Calcium 9.4 9.1 (8.4-10.2) mg/dL AST 156 H 125 H (14-36) U/L ALT 63 H 121 H (9-52) U/L Alkaline Phosphatase 85 74 (38-126) U/L Total Protein 7.6 6.5 (6.3-8.2) g/dL Albumin 4.0 3.4 L (3.5-5.0) g/dL Calcium panel 08/11/18 08/12/18 Range/Units 14:56 08:10 Calcium 9.4 9.1 (8.4-10.2) mg/dL Albumin 4.0 3.4 L (3.5-5.0) g/dL Pituitary panel 08/11/18 08/12/18 Range/Units 14:56 08:10 Sodium 139 139 (137-145) mmol/L Potassium 4.1 4.2 (3.5-5.1) mmol/L Chloride 104 107 (98-107) mmol/L Carbon Dioxide 27 27 (22-30) mmol/L BUN 21 H 16 (7-17) mg/dL Creatinine 0.73 0.73 (0.52-1.04) mg/dL Glucose 157 H 91 (74-99) mg/dL Calcium 9.4 9.1 (8.4-10.2) mg/dL Adrenal panel 08/11/18 08/12/18 Range/Units 14:56 08:10 Sodium 139 139 (137-145) mmol/L Potassium 4.1 4.2 (3.5-5.1) mmol/L Chloride 104 107 (98-107) mmol/L Carbon Dioxide 27 27 (22-30) mmol/L BUN 21 H 16 (7-17) mg/dL Creatinine 0.73 0.73 (0.52-1.04) mg/dL Glucose 157 H 91 (74-99) mg/dL Calcium 9.4 9.1 (8.4-10.2) mg/dL Total Bilirubin 0.6 0.8 (0.2-1.3) mg/dL AST 156 H 125 H (14-36) U/L ALT 63 H 121 H (9-52) U/L Alkaline Phosphatase 85 74 (38-126) U/L Total Protein 7.6 6.5 (6.3-8.2) g/dL Albumin 4.0 3.4 L (3.5-5.0) g/dL <Abdullahi Jacksonony - Last Filed: 08/12/18 16:07> History of Present Illness As above. Patient presented to the ER yesterday with complaints of epigastric pain. Radiation to the back. No history of similar events. Ultrasound shows gallstones with a thickened gallbladder wall and a positive Charles sign. Patient's liver enzymes slightly elevated. Her ALT increased slightly while her AST improved. Alkaline phosphatase and bilirubin normal both draws. Patient's symptoms have improved. Denies any dark urine or changes to her skin or eye color. Options reviewed with the patient. Patient may have passed a small stone. Will proceed with laparoscopic cystectomy, possible open cholecystectomy at this time. Risks of bleeding, infection, bile leak, bile duct injury, retained common bile duct stone, trocar injury, conversion to an open procedure, hernia, anesthesia related complications were reviewed. The patient understands and wishes to proceed. Surgical - Exam Vital Signs Temp Pulse Resp BP Pulse Ox 97.5 F L 85 18 117/67 98 08/11/18 14:27 08/11/18 14:27 08/11/18 14:27 08/11/18 14:27 08/11/18 14:27 Results - Labs 08/12/18 08:10 08/12/18 08:10 Abnormal Lab Results - Last 24 Hours (Table) 08/12/18 08/12/18 Range/Units 08:10 08:10 RBC 3.77 L (3.80-5.40) m/uL Hgb 10.7 L (11.4-16.0) gm/dL AST 125 H (14-36) U/L ALT 121 H (9-52) U/L Albumin 3.4 L (3.5-5.0) g/dL Diabetes panel 08/12/18 Range/Units 08:10 Sodium 139 (137-145) mmol/L Potassium 4.2 (3.5-5.1) mmol/L Chloride 107 (98-107) mmol/L Carbon Dioxide 27 (22-30) mmol/L BUN 16 (7-17) mg/dL Creatinine 0.73 (0.52-1.04) mg/dL Glucose 91 (74-99) mg/dL Calcium 9.1 (8.4-10.2) mg/dL AST 125 H (14-36) U/L ALT 121 H (9-52) U/L Alkaline Phosphatase 74 (38-126) U/L Total Protein 6.5 (6.3-8.2) g/dL Albumin 3.4 L (3.5-5.0) g/dL Calcium panel 08/12/18 Range/Units 08:10 Calcium 9.1 (8.4-10.2) mg/dL Albumin 3.4 L (3.5-5.0) g/dL Pituitary panel 08/12/18 Range/Units 08:10 Sodium 139 (137-145) mmol/L Potassium 4.2 (3.5-5.1) mmol/L Chloride 107 (98-107) mmol/L Carbon Dioxide 27 (22-30) mmol/L BUN 16 (7-17) mg/dL Creatinine 0.73 (0.52-1.04) mg/dL Glucose 91 (74-99) mg/dL Calcium 9.1 (8.4-10.2) mg/dL Adrenal panel 08/12/18 Range/Units 08:10 Sodium 139 (137-145) mmol/L Potassium 4.2 (3.5-5.1) mmol/L Chloride 107 (98-107) mmol/L Carbon Dioxide 27 (22-30) mmol/L BUN 16 (7-17) mg/dL Creatinine 0.73 (0.52-1.04) mg/dL Glucose 91 (74-99) mg/dL Calcium 9.1 (8.4-10.2) mg/dL Total Bilirubin 0.8 (0.2-1.3) mg/dL AST 125 H (14-36) U/L ALT 121 H (9-52) U/L Alkaline Phosphatase 74 (38-126) U/L Total Protein 6.5 (6.3-8.2) g/dL Albumin 3.4 L (3.5-5.0) g/dL
[2018-08-12] MEDS ORDERED: IV FLUID CONTINUATION 1,000 ML IV ONE (15:04)
[2018-08-12] MEDS ORDERED: fentaNYL (PF) 50 MCG/ML 2 ML AMP ONE (16:11)
[2018-08-12] MEDS ORDERED: PROPOFOL 10 MG/ML 20 ML VIAL IV ONE (16:11)
[2018-08-12] MEDS ORDERED: ONDANSETRON 4 MG/2 ML VIAL ONE (16:11)
[2018-08-12] MEDS ORDERED: SUCCINYLCHOLINE CHLORIDE 100 MG/5 ML SYR IV ONE (16:11)
[2018-08-12] MEDS ORDERED: MIDAZOLAM 2 MG/2 ML VIAL ONE (16:11)
[2018-08-12] MEDS ORDERED: NEOSTIGMINE 1 MG/ML 10 ML VIAL ONE (16:11)
[2018-08-12] MEDS ORDERED: DEXAMETHASONE SOD PHOS (MDV) 100 MG/10 ML VIAL ONE (16:11)
[2018-08-12] MEDS ORDERED: KETOROLAC 30 MG/ML 1 ML VIAL ONE (16:11)
[2018-08-12] MEDS ORDERED: LIDOCAINE 1% INJ 10MG/ML (20 ML MDV) ONE (16:11)
[2018-08-12] MEDS ORDERED: ROCURONIUM BROMIDE 10 MG/ML 10 ML VIAL IV ONE (16:11)
[2018-08-12] MEDS ORDERED: GLYCOPYRROLATE 0.2 MG/ML 2 ML VIAL ONE (16:11)
[2018-08-12] MEDS ORDERED: BUPIVACAIN-EPI 0.5%-1:200,000 30 ML VIAL SQ ONE ×2 (16:13)
[2018-08-12] MEDS ORDERED: LACTATED RINGERS 1,000 ML IV ONE (16:33)
--- NOTE | 2018-08-12 17:43 | P.OP ---
Date of Procedure: 08/12/18 Procedure(s) Performed: PREOPERATIVE DIAGNOSIS: Acute cholecystitis POSTOPERATIVE DIAGNOSIS: Same PROCEDURE: Laparoscopic cholecystectomy SURGEON: Renetta EBL: 15 mL ANESTHESIA: Gen. COMPLICATIONS: None OPERATIVE PROCEDURE: The patient was brought and placed on the operating room table in the supine position. The patient was placed under general anesthesia at that time. The abdomen was prepped and draped in the usual sterile fashion. A small horizontal incision was made in the left upper quadrant. The optical 5 mm trocar was used and the peritoneal cavity. It should be noted that the patient's abdominal wall was very thick. A 5 mm trocar was then placed under direct visualization in the supraumbilical location. 2 additional 5 mm trochars were placed in the right upper quadrant under direct visualization. A 12 mm trocar was advanced into the epigastric incision site. The gallbladder was no javy to be acutely inflamed. The gallbladder was retracted superiorly and laterally. The peritoneum overlying the infundibulum was bluntly dissected. The patient's cystic duct was visualized. The junction between the cystic duct common and hepatic duct was identified. The cystic duct was then divided after placement of 3 12 mm clips on the patient's side and one on the specimen side. The cystic artery was identified and clipped as well. A small vessel was seen along the gallbladder fossa and clipped as well. The gallbladder was then removed from the liver bed using electrocautery. The gallbladder was then removed from the epigastric trocar site with an Endo Catch bag. The gallbladder fossa was irrigated with saline. There was no evidence of any bleeding or biliary drainage seen. The fascia at the 12 millimeter site was closed using a Ramirez-Rahel 0 Vicryl stitch. The trochars were then removed. The skin at all 4 sites was closed using a 4-0 Monocryl stitch. Skin glue was utilized on the incision sites. At the end of this procedure the sponge and needle counts were correct. DISPOSITION: Stable to the recovery room
[2018-08-12] MEDS: MORPHINE SULFATE 4 MG/ML SYRINGE IV PRN ×2 (18:07→23:07)
[2018-08-12] MEDS: SODIUM CHLORIDE 0.9% 1,000 ML IV SCH (18:49)
[2018-08-12] MEDS: HYDROcodone/APAP 5-325MG 1 EACH TAB PO PRN (20:19)
[2018-08-13] MEDS: HYDROcodone/APAP 5-325MG 1 EACH TAB PO PRN ×3 (02:43→13:22)
[2018-08-13] MEDS: SODIUM CHLORIDE 0.9% 1,000 ML IV SCH ×3 (03:40→08:42)
[2018-08-13] MEDS: PIPERACILLIN-TAZOBACTAM 3.375 GM in SODIUM CHLORIDE 0.9% 100 ML IVPB SCH ×2 (03:41→11:04)
[2018-08-13] MEDS: MORPHINE SULFATE 4 MG/ML SYRINGE IV PRN (03:47)
[2018-08-13] MEDS: SYNTHROID 50 MCG PO SCH (06:13)
[2018-08-13 06:57] LABS: ALT 88 U/L (9-52); AST 70 U/L (14-36); Albumin 3.1 g/dL (3.5-5.0); Alkaline Phosphatase 65 U/L (38-126); Anion Gap 5 mmol/L; Blood Urea Nitrogen 16 mg/dL (7-17); Carbon Dioxide 26 mmol/L (22-30); Chloride 108 mmol/L (98-107); Glucose 99 mg/dL (74-99); Potassium 4.7 mmol/L (3.5-5.1); Sodium 139 mmol/L (137-145); Total Bilirubin 0.6 mg/dL (0.2-1.3); Total Protein 6.2 g/dL (6.3-8.2)
[2018-08-13 07:36] LABS: Basophils % (A) 0 %; Eosinophils % (A) 0 %; HCT 32.7 % (34.0-46.0); HGB 10.2 gm/dL (11.4-16.0); Hypochromasia Moderate; Lymphocytes % (A) 28 %; MCH 28.7 pg (25.0-35.0); MCHC 31.3 g/dL (31.0-37.0); MCV 91.6 fL (80.0-100.0); Mean Platelet Volume 8.5; Monocytes # (A) 0.2 k/uL (0-1.0); Monocytes % (A) 2 %; Neutrophils # (A) 4.8 k/uL (1.3-7.7); Neutrophils % (A) 68 %; Platelet Count 190 k/uL (150-450); RBC 3.57 m/uL (3.80-5.40); RDW 13.3 % (11.5-15.5); WBC 7.1 k/uL (3.8-10.6)
[2018-08-13 08:42] VITALS: TEMP 98
[2018-08-13] MEDS: HEPARIN SODIUM,PORCINE 5,000 UNIT/ML 1 ML VIAL SQ SCH (08:42)
[2018-08-13] MEDS: PANTOPRAZOLE 40 MG/10 ML VIAL IV SCH (08:43)
[2018-08-13] MEDS ORDERED: FERROUS SULFATE 325 MG TAB PO SCH (09:00)
[2018-08-13] MEDS ORDERED: THIAMINE 100 MG TAB PO SCH (09:00)
--- NOTE | 2018-08-13 09:31 | P.PN ---
Subjective Progress Note Date: 08/13/18 This is a 33 year old female, a patient of Dr. Obrien. She has a known past medical history of hypothyroidism, peripheral vascular disease in which she wears compression stockings, and iron deficiency anemia. Patient also had a gastric sleeve completed in February 2017. Patient presents to the hospital with complaints of right upper quadrant abdominal pain that started after eating lunch yesterday afternoon. Patient reports that she ate salad and that she is off of her pizza and then about 30 minutes later she was having sharp right upper quadrant abdominal pain. Initially she thought it was gas pain took some Gas-X with no relief. Pain continued to worsen. She had chills and sweats. Al so nausea and vomiting. She came into the ER was found have a white count of 12.8 AST 156 and ALT 63. Abdominal ultrasound that showed evidence of cholelithiasis. Possible multiple gravel stones and wall thickened. She was admitted to surgical service. We have been consulted for medical management. Patient denies any history of myocardial infarction, congestive heart failure, diabetes mellitus, any renal disease, any COPD or asthma. She is able to ambulate a flight of stairs without difficulty. She was started on IV Zosyn and is scheduled for lactose A cholecystectomy this afternoon. 08/13/2018 patient is status post laparoscopic cholecystectomy for acute cholecystitis. Patient reports that her pain is controlled. No nausea or vomiting. Tolerated regular diet this morning. She has been up and ambulating. She is belching. She has not passed gas from below or no bowel movement. White count normalized LFTs are trending down. EKG preoperatively had shown normal sinus rhythm. Patient denies any chest pain or shortness of breath Objective - Vital Signs Vital signs: Vital Signs Temp 98.0 F 08/13/18 08:00 Pulse 64 08/13/18 08:00 Resp 16 08/13/18 08:00 BP 109/70 08/13/18 08:00 Pulse Ox 96 08/13/18 08:00 Intake & Output 08/12/18 08/13/18 08/13/18 18:59 06:59 18:59 Intake Total 930 Output Total 135 250 Balance 795 -250 Intake: IV 900 Oral 30 Output: Urine 120 250 Estimated Blood Loss 15 Other: Voiding Method Toilet # Voids 3 - Exam Head normocephalic Neck supple Lungs clear to auscultation bilaterally no wheezing or crackles Heart regular rate and rhythm S1-S2, no rub or gallop Abdomen is soft mild tenderness at incision sites. Incision sites clean dry and intact. nondistended positive bowel sounds no hepatosplenomegaly Extremities no edema Neuro alert and orientated to 3 - Labs CBC & Chem 7: 08/13/18 06:15 08/13/18 06:15 Labs: Abnormal Lab Results - Last 24 Hours (Table) 08/12/18 08/13/18 08/13/18 Range/Units 08:10 06:15 06:15 RBC 3.57 L (3.80-5.40) m/uL Hgb 10.2 L (11.4-16.0) gm/dL Hct 32.7 L (34.0-46.0) % Chloride 108 H (98-107) mmol/L AST 125 H 70 H (14-36) U/L ALT 121 H 88 H (9-52) U/L Total Protein 6.2 L (6.3-8.2) g/dL Albumin 3.4 L 3.1 L (3.5-5.0) g/dL Assessment and Plan Assessment: 1. Acute cholecystitis: Patient is status post laparoscopic cholecystectomy. White count normalized. LFTs trending down. Antibiotics per surgical service 2. Hypothyroidism continue with Synthroid 3. Morbid obesity: Status post gastric sleeve February 2017. Patient does report 100 pound weight loss 4. Iron deficiency anemia: Continue iron supplement. Continue to monitor hemoglobin 5. History of peripheral vascular disease continue compression stockings GI prophylaxis Protonix and DVT prophylaxis subcu heparin Patient is medically stable for discharge. Recommend that she follows up with her PCP in 1 week. I performed an examination of the patient and discussed their management with the physician Solutions Consultant. I have reviewed the Physician [employer] Consultant's notes and agree with the documented findings and plan of care
[2018-08-13] MEDS ORDERED: CHOLECALCIFEROL 1,000 UNIT TAB PO SCH (12:00)
[2018-08-13] MEDS ORDERED: MULTIVITAMINS, THERA 1 EACH TAB PO SCH (12:00)
--- NOTE | 2018-08-13 12:41 | P.DS ---
<Mary Carmen Gonzáles - Last Filed: 08/13/18 12:41> Providers Expected date of discharge: 08/13/18 Hospital Course: 33-year-old female with a history of sleeve gastrectomy in February 2017 who presented to the emergency room with a chief complaint of right upper quadrant abdominal pain. Patient was found to have acute cholecystitis. She underwent laparoscopic cholecystectomy on 08/12/2017. Patient is doing well postoperatively. Vital signs are stable. Tolerating PO intake without nausea or vomiting. LFTs are trending downward. WBC within normal limits. Patient is stable for discharge home today. Please see EMR for further hospital course details. Discharge Diagnosis: 1. Right upper quadrant pain, nausea, vomiting 1 day 2. Acute cholecystitis 3. Elevated liver enzymes 4. History of sleeve gastrectomy, February 2017 Nurse practitioner note has been reviewed by physician. Signing provider agrees with the documented findings, assessment, and plan of care. Patient Condition at Discharge: Good Plan - Discharge Summary New Discharge Prescriptions: New HYDROcodone/APAP 5-325MG [Aztec 5-325] 1 tab PO Q4HR PRN 3 Days #18 tab PRN Reason: Pain Docusate [Colace] 100 mg PO BID #30 capsule Continue Levothyroxine Sodium [Synthroid] 50 mcg PO DAILY Omeprazole [PriLOSEC] 20 mg PO AC-BRKFST #90 cap Cholecalciferol (Vitamin D3) [Vitamin D3] 2,000 unit PO DAILY Thiamine [Vitamin B-1] 100 mg PO DAILY Multivitamin [Multivitamins Adult Gummies] 1 tab PO DAILY Ferrous Sulfate [Iron (65 MG Elemental)] 325 mg PO DAILY Discharge Medication List Levothyroxine Sodium [Synthroid] 50 mcg PO DAILY 11/18/16 [History] Omeprazole [PriLOSEC] 20 mg PO AC-BRKFST #90 cap 12/11/16 [Rx] Cholecalciferol (Vitamin D3) [Vitamin D3] 2,000 unit PO DAILY 11/17/17 [History] Multivitamin [Multivitamins Adult Gummies] 1 tab PO DAILY 05/18/18 [History] Thiamine [Vitamin B-1] 100 mg PO DAILY 05/18/18 [History] Ferrous Sulfate [Iron (65 MG Elemental)] 325 mg PO DAILY 08/11/18 [History] Docusate [Colace] 100 mg PO BID #30 capsule 08/13/18 [Rx] HYDROcodone/APAP 5-325MG [Aztec 5-325] 1 tab PO Q4HR PRN 3 Days #18 tab 08/13/18 [Rx] Follow up Appointment(s)/Referral(s): Arun Jackson MD [Medical Doctor] - 08/25/18 2:00 pm (bring drivers license insurance cards. new paperwork. ) Allyn Obrien DO [Primary Care Provider] - 08/20/18 10:00 am Patient Instructions/Handouts: Abdominal Pain (ED) Activity/Diet/Wound Care/Special Instructions: Continue low fat diet as tolerated. fluids are always encouraged. No driving while taking Aztec No lifting/pushing/pulling over 10 pounds You may shower. No soaking or tub baths or hot tubs Very light activity until you are reevaluated at your follow up appointment with your surgeon (appt has been made for you). Call physician with any questions comments concerns worsening returning symptoms, pain not controlled by norco, not tolerating diet, not tolerating fluids., smelly ooz or puss coming from puncture sites. Discharge Disposition: HOME SELF-CARE <Arun Jackson - Last Filed: 08/13/18 15:26> Providers Date of admission: 08/11/18 17:16 Attending physician: Arun Jackson Consults: 08/11/18 19:24 Consult Physician Routine Consulting Provider: Alicia Conklin Consult Reason/Comments: Medical management Do you want consulting provider notified?: Yes Primary care physician: Allyn Obrien Hospital Course: Patient doing well today. Liver enzymes improved. Patient was discharged prior to my seeing her. She will follow-up in 1 week.
[2018-08-13 14:36] VITALS: BP 122/71; PULSE 84; RESP 18
[2018-08-14] MEDS ORDERED: PANTOPRAZOLE 40 MG TABLET PO SCH (07:30)
== END 2018-08-13 14:05 | disposition home or self-care (01) ==
LOC: EC 14:01 → 6PED 17:16
PROVIDERS: ADMIT Surgery; ATTEND Surgery
DX: K80.12 Calculus of gallbladder with acute and chronic cholecystitis without obstruction (principal); E03.9 Hypothyroidism, unspecified; D50.9 Iron deficiency anemia, unspecified; Z98.84 Bariatric surgery status; I73.9 Peripheral vascular disease, unspecified; I87.2 Venous insufficiency (chronic) (peripheral); L65.9 Nonscarring hair loss, unspecified; L30.9 Dermatitis, unspecified; R74.8 Abnormal levels of other serum enzymes; E66.01 Morbid (severe) obesity due to excess calories; Z68.43 Body mass index [BMI] 50.0-59.9, adult; Z79.890 Hormone replacement therapy; Z79.899 Other long term (current) drug therapy; Z88.2 Allergy status to sulfonamides; Z83.3 Family history of diabetes mellitus
CPT/HCPCS: 47562; 96361; 96374; 96375; 99285; 36415; 81025 ×2; 88304; 80053 ×3; 82150; 83690; 85025 ×3; 81003; 74018; 76705; G0378 ×3; J2543 ×3; J2250; J2270 ×2; J1644 ×2; J2710; J2405 ×2; J2001; J3010; J1885 ×2; J1100; J0330; J2704; C9113 ×2

== ENCOUNTER → 2018-11-03 | Outpatient (CLI) | payer BC ==
[2018-11-03 16:59] LABS: Iron Saturation 13.37 (12.00-45.00)
[2018-11-03 17:08] LABS: Vitamin D 25 Hydroxy 29.8 ng/mL (30.0-100.0)
== END | disposition home or self-care (01) ==
LOC: LABWHC1 12:01
PROVIDERS: ATTEND Internal Medicine Endocrinology, Diabetes & Metabolism
DX: E03.8 Other specified hypothyroidism (principal); K90.89 Other intestinal malabsorption; E66.01 Morbid (severe) obesity due to excess calories; E55.9 Vitamin D deficiency, unspecified
CPT/HCPCS: 36415; 82306; 82728; 83540; 83550; 84425; 84443

== ENCOUNTER → 2018-12-14 | Outpatient (CLI) | payer BC ==
[2018-08-04 09:27] VITALS: BMI 53.1
[2018-12-14 13:39] VITALS: BP 114/65; PULSE 67; RESP 16; TEMP 99
--- NOTE | 2018-12-14 15:48 | P.BASOAP ---
Subjective Progress Note Date: 12/14/18 Principal diagnosis: Morbid obesity Patient returns for a recheck today. Weight has been stable since last visit. Remains on antiacids. No heartburn symptoms while taking her antiacids. She has been exercising more lately. Her recent labs showed an improvement in her iron and vitamin D level. Vitamin B1 is now normal. Doing well since cholecystectomy and August. Objective - Vital Signs Vital signs: Vital Signs Temp 99 F 12/14/18 13:36 Pulse 67 12/14/18 13:36 Resp 16 12/14/18 13:36 BP 114/65 12/14/18 13:36 Pulse Ox Intake & Output 12/13/18 12/14/18 12/14/18 18:59 06:59 18:59 Weight 136.078 kg - Exam Abdomen: Soft, nontender, nondistended Assessment/Plan (1) Morbid obesity Narrative/Plan: Patient doing fairly well. Continue dietary and exercise regimen. Continue antiacids. Follow-up 3 months. Plan: Date: 12/14/18 Initial Weight: 184.567 kg Initial BMI: 72.1 Current Weight: 136.078 kg Current BMI: 53.1 Type of Surgery: Total Volume in Band: Previous Volume: Volume Removed: Volume Added: Band Size:
== END | disposition home or self-care (01) ==
LOC: BARWHC3 13:02
PROVIDERS: ATTEND Surgery
DX: E66.01 Morbid (severe) obesity due to excess calories (principal); Z68.43 Body mass index [BMI] 50.0-59.9, adult; Z90.49 Acquired absence of other specified parts of digestive tract
CPT/HCPCS: 97803; 99211

== ENCOUNTER → 2019-03-15 | Outpatient (CLI) | payer BC ==
--- NOTE | 2019-03-15 22:20 | P.BASOAP ---
Subjective Progress Note Date: 03/15/19 Principal diagnosis: Morbid obesity Patient returns for recheck. Doing well since last visit. She has stopped exercising unfortunately. She has lost pounds since last visit. Doing better with protein intake. She is due for two-year labs. Objective - Exam Abdomen: Soft, nontender, nondistended Assessment/Plan (1) Morbid obesity Narrative/Plan: Patient doing fairly well. We will increase activity at this time. Continue dietary regimen. Follow-up 6 months. Check two yr labs at this time. Plan: Date: Initial Weight: 184.567 kg Initial BMI: Current Weight: Current BMI: Type of Surgery: Total Volume in Band: Previous Volume: Volume Removed: Volume Added: Band Size:
[2019-03-16 08:39] VITALS: BP 115/82; PULSE 81; TEMP 98.1; BMI 51.3
== END ==
LOC: BARWHC3 14:59
PROVIDERS: ATTEND Surgery
DX: E66.01 Morbid (severe) obesity due to excess calories (principal)
CPT/HCPCS: 99211

== ENCOUNTER → 2019-06-17 | Outpatient (CLI) | payer BC ==
[2019-06-17 07:53] LABS: HCT 34.2 % (34.0-46.0); HGB 10.6 gm/dL (11.4-16.0); Hypochromasia Slight; MCH 26.4 pg (25.0-35.0); MCHC 30.9 g/dL (31.0-37.0); MCV 85.5 fL (80.0-100.0); Mean Platelet Volume 9.3; Platelet Count 248 k/uL (150-450); WBC 5.1 k/uL (3.8-10.6)
[2019-06-17 10:24] LABS: African American GFR (CKD) 130.1 (60.0-200.0); Albumin 4.1 g/dL (3.80-4.90); Albumin/Globulin Ratio 1.52 (1.60-3.17); Anion Gap 6.3 mmol/L (4.00-12.00); BUN/Creat Ratio 24.29 Ratio (12.00-20.00); Calcium 9.1 mg/dL (8.7-10.3); Carbon Dioxide 27.7 mmol/L (21.6-31.8); Globulin 2.7 g/dL (1.6-3.3); Magnesium 2.1 mg/dL (1.5-2.4); Non-African American GFR(CKD) 112.3 (60.0-200.0); Total Bilirubin 0.6 mg/dL (0.3-1.2); Total Protein 6.8 g/dL (6.2-8.2)
[2019-06-17 10:34] LABS: Folate, Serum 5.3 ng/mL
[2019-06-17 16:45] LABS: Hemoglobin A1C 4.8 % (4.0-6.0)
== END | disposition home or self-care (01) ==
LOC: LABWHC1 07:19
PROVIDERS: ATTEND Physician Assistant Medical
DX: E03.8 Other specified hypothyroidism (principal); E66.01 Morbid (severe) obesity due to excess calories; K90.89 Other intestinal malabsorption; E55.9 Vitamin D deficiency, unspecified; R53.83 Other fatigue; R55 Syncope and collapse; E16.2 Hypoglycemia, unspecified
CPT/HCPCS: 36415; 80053; 82306; 82607; 82746; 83036; 83540; 83735; 84425; 84443; 85027

== ENCOUNTER → 2019-12-16 | Outpatient (CLI) | payer BC | END | disposition home or self-care (01) | LOC: LABWHC1 07:11 | PROVIDERS: ATTEND Internal Medicine Endocrinology, Diabetes & Metabolism | DX: E03.8 Other specified hypothyroidism (principal) | CPT/HCPCS: 36415; 84443 ==

== ENCOUNTER → 2020-03-16 | Outpatient (CLI) | payer BC | END | disposition home or self-care (01) | LOC: LABWHC1 11:51 | PROVIDERS: ATTEND Internal Medicine Endocrinology, Diabetes & Metabolism | DX: E03.8 Other specified hypothyroidism (principal) | CPT/HCPCS: 36415; 84443 ==

== ENCOUNTER → 2020-06-25 | Outpatient (CLI) | payer BC ==
--- NOTE | 2020-06-26 08:19 | MM ---
Reason for exam: screening (asymptomatic). Baseline mammogram. History: Patient is nulliparous. Family history of breast cancer in mother at age 63. Physical Findings: Nurse did not find any significant physical abnormalities on exam. MG 3D Screening Mammo W/Cad Bilateral CC and MLO view(s) were taken. There are scattered fibroglandular densities. Tiny group of subtle punctate calcifications posterior upper outer quadrant right breast. 6 month follow up recommended to reassess. Otherwise, no discrete abnormality. These results were verbally communicated with the patient and result sheet given to the patient on 06/25/20. ASSESSMENT: Probably benign, BI-RAD 3 RECOMMENDATION: Follow-up diagnostic mammogram of the right breast in 6 months.
== END | disposition home or self-care (01) ==
LOC: RADMAMWWP 13:48
PROVIDERS: ATTEND Family Medicine
DX: Z12.31 Encounter for screening mammogram for malignant neoplasm of breast (principal); Z80.3 Family history of malignant neoplasm of breast
CPT/HCPCS: 77063; 77067

== ENCOUNTER → 2020-10-03 | Outpatient (CLI) | payer BC | END | disposition home or self-care (01) | LOC: LABWHC1 11:12 | PROVIDERS: ATTEND Internal Medicine Endocrinology, Diabetes & Metabolism | DX: E03.8 Other specified hypothyroidism (principal) | CPT/HCPCS: 36415; 84443 ==

== ENCOUNTER → 2020-11-20 | Outpatient (CLI) | payer BC ==
[2020-11-20 13:19] VITALS: BP 133/81; PULSE 103; RESP 16; TEMP 98.1; BMI 53.3
--- NOTE | 2020-11-20 21:16 | P.BASOAP ---
Subjective Progress Note Date: 11/20/20 Principal diagnosis: Morbid obesity Patient returns for bariatric follow-up. She was last seen in March 2019. She had her two-year labs checked at that point which looked good. Recently she changed jobs. Her stress level is decreased. Still not exercising regularly. Weight increased by 11 pounds since last visit. Denies nausea or vomiting. Mild reflux at times. Remains on antacids. He describes having a skin rash frequently under her pannus if she doesn't keep that area dry. Objective - Vital Signs Vital signs: Vital Signs Temp 98.1 F 11/20/20 13:17 Pulse 103 H 11/20/20 13:17 Resp 16 11/20/20 13:17 BP 133/81 11/20/20 13:17 Pulse Ox Intake & Output 11/20/20 11/20/20 11/21/20 06:59 18:59 06:59 Weight 136.531 kg - Exam Abdomen: Soft, nontender, nondistended Assessment/Plan (1) Morbid obesity Narrative/Plan: Overall patient doing well since last visit. Patient states she will start dedicating more time to exercise. Continue bariatric diet. Will check annual labs. Follow-up 6 months. Plan: Date: 11/20/20 Initial Weight: 184.567 kg Initial BMI: 72.1 Current Weight: 136.531 kg Current BMI: 53.3 Type of Surgery: Total Volume in Band: Previous Volume: Volume Removed: Volume Added: Band Size:
== END ==
LOC: BARWHC3 12:58
PROVIDERS: ATTEND Surgery
DX: E66.01 Morbid (severe) obesity due to excess calories (principal); Z68.43 Body mass index [BMI] 50.0-59.9, adult; Z88.2 Allergy status to sulfonamides
CPT/HCPCS: 99211

== ENCOUNTER → 2020-12-15 | Outpatient (CLI) | payer BC | END | disposition home or self-care (01) ==

== ENCOUNTER → 2021-02-25 | Outpatient (CLI) | payer BC ==
--- NOTE | 2021-02-26 07:39 | MM ---
Reason for exam: follow-up at short interval from prior study. Last mammogram was performed 8 months ago. History: Patient is nulliparous. Family history of breast cancer in mother at age 63. Took hormonal contraceptives for 3 years. Physical Findings: Nurse did not find any significant physical abnormalities on exam. MG 3D Diag Mammo W/Cad RT CC and MLO view(s) were taken of the right breast. Prior study comparison: June 25, 2020, bilateral MG 3d screening mammo w/cad. The breast tissue is almost entirely fat. There are a couple calcifications far upper outer quadrant right breast. These results were verbally communicated with the patient and result sheet given to the patient on 02/25/21. ASSESSMENT: Probably benign, BI-RAD 3 RECOMMENDATION: Follow-up diagnostic mammogram of both breasts in 4 months. Back on schedule for June 2020.
== END | disposition home or self-care (01) ==
LOC: RADMAMWWP 14:59
PROVIDERS: ATTEND Family Medicine
DX: R92.1 Mammographic calcification found on diagnostic imaging of breast (principal); Z80.3 Family history of malignant neoplasm of breast; Z79.3 Long term (current) use of hormonal contraceptives
CPT/HCPCS: 77061; 77065

== ENCOUNTER 2021-03-28 10:06 | Day surgery (SDC) | payer BC ==
[2021-03-25 12:12] VITALS: BMI 53.1
[2021-03-28] MEDS ORDERED: LIDOCAINE 1% (10MG/ML) FOR IV START INTRADERMA ONE (10:40)
[2021-03-28] MEDS ORDERED: KETAMINE 10 MG/ML 20 ML VIAL ONE (11:31)
[2021-03-28] MEDS ORDERED: GLYCOPYRROLATE 0.2 MG/ML 2 ML VIAL ONE (11:31)
[2021-03-28] MEDS ORDERED: LIDOCAINE 1% INJ 10MG/ML (20 ML MDV) ONE (11:31)
[2021-03-28] MEDS ORDERED: PROPOFOL 10 MG/ML 20 ML VIAL IV ONE (11:31)
[2021-03-28] MEDS ORDERED: ALBUTEROL HFA INHALER INHALATION ONE (11:31)
--- NOTE | 2021-03-28 11:32 | P.GSHP ---
History of Present Illness H&P Date: 03/28/21 Chief Complaint: Anemia Is a 35-year-old female. Patient is undergoing workup of anemia. Her hemoglobin was in the 8 range. She denies any significant rectal bleeding. Past Medical History Past Medical History: Thyroid Disorder Additional Past Medical History / Comment(s): anemia, venous insufficeincy (bilateral legs; wears compression stockings), hair loss, eczema, has an irregular heartrate. History of Any Multi-Drug Resistant Organisms: None Reported Past Surgical History: Bariatric Surgery, Cholecystectomy Additional Past Surgical History / Comment(s): wisdom teeth pulled under anesthesia. egd-12/11/16 sleeve gastrectomy 02-28-17, Past Anesthesia/Blood Transfusion Reactions: Postoperative Nausea & Vomiting (PONV) Smoking Status: Never smoker - Past Family History Mother Family Medical History: Diabetes Mellitus Medications and Allergies Home Medications Medication Instructions Recorded Confirmed Type Levothyroxine Sodium [Synthroid] 75 mcg PO DAILY 11/18/16 03/25/21 History Cholecalciferol (Vitamin D3) 2,000 unit PO DAILY 11/17/17 03/25/21 History [Vitamin D3] Multivitamin [Multivitamins Adult 1 tab PO DAILY 05/18/18 03/25/21 History Gummies] Thiamine [Vitamin B-1] 100 mg PO DAILY 05/18/18 03/25/21 History Ferrous Sulfate [Iron (65 MG 325 mg PO DAILY 08/11/18 03/25/21 History Elemental)] Omeprazole [PriLOSEC] 40 mg PO AC-BRKFST #90 cap 11/22/20 03/25/21 Rx Calcium Carbonate/Vitamin D3 1 tab PO DAILY 03/25/21 03/25/21 History [Calcium 500 mg Chewable Tablet] Metoprolol Tartrate [Lopressor] 25 mg PO BID 03/25/21 03/25/21 History Allergies Allergy/AdvReac Type Severity Reaction Status Date / Time Sulfa (Sulfonamide Allergy Rash/Hives Verified 03/28/21 10:27 Antibiotics) Surgical - Exam Vital Signs Temp Pulse Resp BP Pulse Ox 98.0 F 92 16 134/67 94 L 03/28/21 10:33 03/28/21 10:33 03/28/21 10:33 03/28/21 10:33 03/28/21 10:33 - General well developed, well nourished, no distress - Eyes PERRL - ENT normal pinna - Neck no masses - Respiratory normal expansion - Cardiovascular Rhythm: regular - Abdomen Abdomen: soft, non tender Assessment and Plan Assessment: Anemia. Digital upper and lower endoscopy for workup.
--- NOTE | 2021-03-28 11:48 | P.OP ---
Date of Procedure: 03/28/21 Preoperative Diagnosis: Anemia Postoperative Diagnosis: Antral gastritis Small sliding hiatal hernia No evidence of blood in upper GI tract Procedure(s) Performed: EGD Colonoscopy Anesthesia: MAC Surgeon: Seth Jhaveri Pathology: other (Antrum) Condition: stable Disposition: PACU Description of Procedure: The patient's placed on the endoscopy table in the lateral position. She received IV sedation. The gastroscope placed oropharynx passed in the esophagus and stomach. Scope was then placed through the pylorus. The first and second portion of the duodenum appeared normal. Scope was then brought back the antrum this is minimal inflamed. A biopsies performed. The scope was she'll flexed a nd the remainder of the stomach appeared normal. The GE junction was at 40 cm.. There was a small sliding hiatal hernia. The distal esophagus appeared normal. The proximal esophagus appeared normal. Scope withdrawn for patient. Patient desaturated procedure unclear if she actually aspirated. Patient as was canceled. She will be rescheduled for colonoscopy
[2021-03-28] MEDS ORDERED: ALBUTEROL NEBULIZED 2.5 MG/3 ML INHALATION ONE (11:56)
--- NOTE | 2021-03-28 12:50 | XR ---
EXAMINATION TYPE: XR chest 1V portable DATE OF EXAM: 03/28/2021 Comparison: None Clinical History: 35-year-old female shortness of breath, r/o aspiration Findings: Heart normal size. Aorta within normal limits. Diffuse patchy interstitial opacity. No pleural effusi on. Impression: Diffuse patchy interstitial opacity. Underlying pneumonitis is suggested.
[2021-03-28 13:44] VITALS: TEMP 96.8
[2021-03-28] MEDS ORDERED: LACTATED RINGERS 1,000 ML IV ONE (14:50)
[2021-03-28 16:25] VITALS: BP 119/64; PULSE 119; RESP 16
== END 2021-03-28 17:29 | disposition home or self-care (01) ==
LOC: ORWHC2ENDO 10:06
PROVIDERS: ATTEND Surgery
DX: D64.9 Anemia, unspecified (principal); K29.50 Unspecified chronic gastritis without bleeding; K21.9 Gastro-esophageal reflux disease without esophagitis; K44.9 Diaphragmatic hernia without obstruction or gangrene; E07.9 Disorder of thyroid, unspecified; I10 Essential (primary) hypertension; I49.9 Cardiac arrhythmia, unspecified; I87.2 Venous insufficiency (chronic) (peripheral); L65.9 Nonscarring hair loss, unspecified; L30.9 Dermatitis, unspecified; Z98.84 Bariatric surgery status; Z79.890 Hormone replacement therapy; Z79.899 Other long term (current) drug therapy; Z88.2 Allergy status to sulfonamides; Z90.49 Acquired absence of other specified parts of digestive tract; Z98.890 Other specified postprocedural states; Z83.3 Family history of diabetes mellitus
CPT/HCPCS: 81025; 88305; 71045; 43239; J2001; J2704

== ENCOUNTER → 2021-06-15 | Outpatient (CLI) | payer BC | END | disposition home or self-care (01) | LOC: LABWHC1 10:29 | PROVIDERS: ATTEND Internal Medicine Endocrinology, Diabetes & Metabolism | DX: E03.8 Other specified hypothyroidism (principal) | CPT/HCPCS: 36415; 84443 ==

== ENCOUNTER → 2021-12-21 | Outpatient (CLI) | payer BC | END | disposition home or self-care (01) | LOC: LABWHC1 08:49 | PROVIDERS: ATTEND Internal Medicine Endocrinology, Diabetes & Metabolism | DX: E03.8 Other specified hypothyroidism (principal) | CPT/HCPCS: 36415; 84443 ==

== ENCOUNTER → 2022-06-24 | Outpatient (CLI) | payer BC | END | disposition home or self-care (01) | LOC: LABWHC1 15:53 | PROVIDERS: ATTEND Internal Medicine Endocrinology, Diabetes & Metabolism | DX: E03.8 Other specified hypothyroidism (principal) | CPT/HCPCS: 36415; 84443 ==

== ENCOUNTER → 2023-01-26 | Outpatient (CLI) | payer BC ==
--- NOTE | 2023-01-27 08:52 | MM ---
Reason for Exam: Screening (asymptomatic). Last mammogram was performed 2 year(s) and 7 month(s) ago. Patient History: Menarche at age 11. Patient has no children. Patient used Hormonal Contraceptives for 3 years. Mother had breast cancer, age 63. Last menstrual period: 01/23/2023 Risk Values: Ana 5 year model risk: 0.7%. NCI Lifetime model risk: 15.1%. Prior Study Comparison: 06/25/2020 Bilateral Screening Mammogram, [facility]. 02/25/2021 Right Diagnostic Mammogram, [facility]. Tissue Density: There are scattered fibroglandular densities. Findings: Analyzed By CAD. There is no suspicious group of microcalcifications or new suspicious mass in either breast. Stable chronic nodularity within both breasts. Overall Assessment: Benign, BI-RAD 2 Management: Screening Mammogram of both breasts in 1 year. A clinical breast exam by your physician is recommended on an annual basis and results should be correlated with mammographic findings. Note on Ana scores and lifetime risk: 1. A Ana score greater than 3% is considered moderate risk. If this is the case, consider specialist referral to assess eligibility for a risk reducing agent. If overall lifetime risk for the development of breast cancer is 20% or higher, the patient may qualify for future screening with alternating mammogram and breast MRI. Electronically signed and approved by: Kiran Liz D.O.
== END | disposition home or self-care (01) ==
LOC: RADMAMWWP 16:35
PROVIDERS: ATTEND Family Medicine
DX: Z12.31 Encounter for screening mammogram for malignant neoplasm of breast (principal); Z80.3 Family history of malignant neoplasm of breast
CPT/HCPCS: 77063; 77067

== ENCOUNTER → 2023-07-27 | Outpatient (CLI) | payer BC ==
[2023-07-27] MEDS: SODIUM CHLORIDE 0.9% 500 ML 500 ML in EMPTY BAG 1 BAG IV PRN (13:24)
[2023-07-27] MEDS: IRON SUCROSE 200 MG in SODIUM CHLORIDE 0.9% 100 ML IVPB ONE (13:24)
[2023-07-27 13:45] VITALS: BP 128/76; PULSE 103; RESP 16; TEMP 98
== END ==
LOC: PROCWHC3 12:52
PROVIDERS: ATTEND Family Medicine
DX: D50.9 Iron deficiency anemia, unspecified (principal)
CPT/HCPCS: 96365; J1756

== ENCOUNTER → 2024-02-11 | Outpatient (CLI) | payer BC ==
--- NOTE | 2024-02-14 11:40 | MM ---
Reason for Exam: Screening (asymptomatic). Last mammogram was performed 1 year(s) and 1 month(s) ago. Patient History: Menarche at age 11. Patient has no children. Premenopausal. Patient used Hormonal Contraceptives for 3 years. Mother had breast cancer, age 63. Last menstrual period: 02/07/2024 Risk Values: Ana 5 year model risk: 0.8%. NCI Lifetime model risk: 15.0%. Prior Study Comparison: 06/25/2020 Bilateral Screening Mammogram, [facility]. 02/25/2021 Right Diagnostic Mammogram, [facility]. 01/26/2023 Bilateral MG 3D screening mammo w/cad, [facility]. Tissue Density: The breasts are almost entirely fatty. Findings: Analyzed By CAD. Right breast: There is no suspicious group of microcalcifications or new suspicious mass. Left breast: There is no suspicious group of microcalcifications or new suspicious mass. Overall Assessment: Negative, BI-RAD 1 Management: Screening Mammogram of both breasts in [address] [facility] will attempt to contact patient to return for supplemental views and ultrasound if indicated. Patient should continue monthly self-breast exams. A clinical breast exam by your physician is recommended on an annual basis. This exam should not preclude additional follow-up of suspicious palpable abnormalities. Note on Ana scores and lifetime risk: 1. A Ana score greater than 3% is considered moderate risk. If this is the case, consider specialist referral to assess eligibility for a risk reducing agent. 2. If overall lifetime risk for the development of breast cancer is 20% or higher, the patient may qualify for future screening with alternating mammogram and breast MRI. Electronically signed and approved by: Bruno Love DO
== END | disposition home or self-care (01) ==
LOC: RADMAMWWP 13:55
PROVIDERS: ATTEND Family Medicine
DX: Z12.31 Encounter for screening mammogram for malignant neoplasm of breast (principal); Z80.3 Family history of malignant neoplasm of breast; Z92.0 Personal history of contraception
CPT/HCPCS: 77063; 77067

== ENCOUNTER → 2024-02-27 | Outpatient (CLI) | payer BC | END | disposition home or self-care (01) | LOC: LABWHC1 07:58 | PROVIDERS: ATTEND Internal Medicine Endocrinology, Diabetes & Metabolism | DX: E03.8 Other specified hypothyroidism (principal) | CPT/HCPCS: 36415; 84443 ==